=== PATIENT | male | born 1945 | race Caucasian/White ===

== ENCOUNTER → 2016-05-05 | Outpatient (CLI) | payer MEDICARE, BC ==
[2016-05-05 15:37] LABS: CHLORIDE,CL 107 mmol/L (98-110); SODIUM,NA 140 mmol/L (136-146)
== END ==
LOC: MW.CHNEURO 14:56
PROVIDERS: ATTEND Psychiatry & Neurology Neuromuscular Medicine
DX: R56.9 Unspecified convulsions (principal)
CPT/HCPCS: 36415; 80053; 80185; 85025

== ENCOUNTER → 2016-05-20 | Outpatient (CLI) | payer MEDICARE, BC | LOC: MW.CHPOD 08:00 | PROVIDERS: ATTEND Podiatrist Foot & Ankle Surgery | DX: M79.671 Pain in right foot (principal); L84 Corns and callosities; B07.0 Plantar wart | CPT/HCPCS: 17110; 99203 ==

== ENCOUNTER → 2016-06-04 | Outpatient (CLI) | payer MEDICARE, BC | LOC: MW.CHPOD 08:00 | PROVIDERS: ATTEND Podiatrist Foot & Ankle Surgery | DX: L84 Corns and callosities (principal); B07.0 Plantar wart; M79.671 Pain in right foot | CPT/HCPCS: 17110; G0463 ==

== ENCOUNTER → 2016-06-25 | Outpatient (CLI) | payer MEDICARE, BC | LOC: MW.CHPOD 08:00 | PROVIDERS: ATTEND Podiatrist Foot & Ankle Surgery | DX: B07.0 Plantar wart (principal); M79.671 Pain in right foot | CPT/HCPCS: G0463 ==

== ENCOUNTER 2018-06-21 16:09 | Emergency (ER) | payer MEDICARE, BC ==
--- NOTE | 2018-06-21 17:10 | EDM.PDOC ---
ED HPI GENERAL MEDICAL PROBLEM - General Chief Complaint: Lower Extremity Injury/Pain Stated Complaint: LEFT FOOT INJURY Time Seen by Provider: 06/21/18 16:49 Source of Information: Reports: Patient History Limitations: Reports: No Limitations - History of Present Illness INITIAL COMMENTS - FREE TEXT/NARRATIVE: HISTORY AND PHYSICAL: History of present illness: Patient is a 73-year-old male who presents to the emergency room with concern of infection from a puncture site from a nail. Patient states that he had stepped on a nail approximately 3-4 days ago which he removed himself. He states he is not concerned but now has pain and tenderness with palpation at the puncture site. Patient denies any fever, chills, headache, change in vision, syncope or near syncope. Denies any chest pain, back pain, shortness of breath or cough. Denies any abdominal pain, nausea, vomiting, diarrhea, constipation or dysuria. Has not noted any blood in urine or stool. Patient has been eating and drinking appropriately. Review of systems: As per history of present illness and below otherwise all systems reviewed and negative. Past medical history: As per history of present illness and as reviewed below otherwise noncontributory. Surgical history: As per history of present illness and as reviewed below otherwise noncontributory. Social history: See social history for further information Family history: As per history of present illness and as reviewed below otherwise noncontributory. Physical exam: General: Well-developed and well-nourished 73-year-old male. Alert and oriented. Nontoxic appearing and in no acute distress. HEENT: Atraumatic, normocephalic, pupils equal and reactive bilaterally, negative for conjunctival pallor or scleral icterus, mucous membranes moist, trachea midline. No drooling or trismus noted. No meningeal signs. No hot potato voice noted. Lungs: Clear to auscultation, breath sounds equal bilaterally, chest nontender. Heart: S1S2, regular rate and rhythm without overt murmur Abdomen: Soft, nondistended, nontender. Pelvis: Stable nontender. Genitourinary: Deferred. Rectal: Deferred. Skin: Localized area of pinkish erythema noted to the pad of the solar aspect of the left foot below the second and third digit. Otherwise skin is intact, warm, dry. No lesions or rashes noted. Extremities: Moves all extremities per self with difficulty or deficits, negative for cords or calf pain. Neurovascular unremarkable. Neuro: Awake, alert, oriented. Cranial nerves II through XII unremarkable. Cerebellum unremarkable. Motor and sensory unremarkable throughout. Exam nonfocal. Notes: Patient declines crutches or pain medication. We discussed the need for follow- up with podiatry. Supportive care measures were reviewed and discussed. Voices understanding and is agreeable to plan of care. Denies any further questions or concerns at this time. Diagnostics: X-ray Therapeutics: None Prescription: Septra BID x 10 days Impression: Puncture wound Plan: 1. Rest, ice, elevate the extremity as able. 2. Continue to monitor for signs of improvement. 3. Follow-up with your primary care provider or podiatry as we discussed. Return to the ED as needed and as discussed Definitive disposition and diagnosis as appropriate pending reevaluation and review of above. Left Foot Pain Score (Numeric/FACES): 3 - Related Data Allergies Allergy/AdvReac Type Severity Reaction Status Date / Time No Known Allergies Allergy Verified 06/21/18 16:57 Home Meds: Home Meds Sulfamethoxazole/Trimethoprim [Septra DS] 1 each PO BID 10 Days #20 tab [Rx] Past Medical History HEENT History: Reports: Cataract, Other (See Below) Other HEENT History: wears glasses Cardiovascular History: Reports: High Cholesterol Other Cardiovascular History: stopped Atorvastatin 2 months ago Other Respiratory History: denies sleep apnea Musculoskeletal History: Reports: Fracture Other Musculoskeletal History: ribs and right clavicle (states has hardware) Neurological History: Reports: CVA, Seizure Other Neuro History: 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".....last seizure was about 7 months ago Hematologic History: Reports: Other (See Below) Other Hematologic History: stopped Plavix 2 months ago - Infectious Disease History Infectious Disease History: Reports: None - Past Surgical History Head Surgeries/Procedures: Reports: None HEENT Surgical History: Reports: Cataract Surgery GI Surgical History: Reports: Appendectomy, Colonoscopy Male Surgical History: Reports: Prostatectomy Musculoskeletal Surgical History: Reports: Arthroscopic Knee, ORIF, Shoulder Surgery Other Musculoskeletal Surgeries/Procedures:: ORIF right clavicle and ribs Social & Family History - Family History Family Medical History: Noncontributory - Tobacco Use Smoking Status *Q: Never Smoker - Caffeine Use Caffeine Use: Reports: Coffee - Recreational Drug Use Recreational Drug Use: No Review of Systems - Review of Systems Review Of Systems: ROS reveals no pertinent complaints other than HPI. ED EXAM, GENERAL - Physical Exam Exam: See Below (See dictation) Course - Vital Signs Last Recorded V/S: Last Vital Signs Temp 96.3 F 06/21/18 16:57 Pulse 87 06/21/18 16:57 Resp 15 06/21/18 16:57 BP 143/74 H 06/21/18 16:57 Pulse Ox 98 06/21/18 16:57 - Orders/Labs/Meds Orders: Active Orders 24 hr Category Date Time Status Foot 2V Lt [CR] Stat Exams 06/21/18 16:17 Taken Departure - Departure Time of Disposition: 17:10 Disposition: Home, Self-Care 01 Clinical Impression: Puncture wound - Discharge Information Prescriptions: Sulfamethoxazole/Trimethoprim [Septra DS] 1 each PO BID 10 Days #20 tab Referrals: PCP,None [Primary Care Provider] - Forms: ED Department Discharge Additional Instructions: The following information is given to patients seen in the emergency department who are being discharged to home. This information is to outline your options for follow-up care. We provide all patients seen in our emergency department with a follow-up referral. The need for follow-up, as well as the timing and circumstances, are variable depending upon the specifics of your emergency department visit. If you don't have a primary care physician on staff, we will provide you with a referral. We always advise you to contact your personal physician following an emergency department visit to inform them of the circumstance of the visit and for follow-up with them and/or the need for any referrals to a consulting specialist. The emergency department will also refer you to a specialist when appropriate. This referral assures that you have the opportunity for follow-up care with a specialist. All of these measure are taken in an effort to provide you with optimal care, which includes your follow-up. Under all circumstances we always encourage you to contact your private physician who remains a resource for coordinating your care. When calling for follow-up care, please make the office aware that this follow-up is from your recent emergency room visit. If for any reason you are refused follow-up, please contact the [facility] Emergency Department at and asked to speak to the emergency department charge nurse. YONG [facility] [address] [place] [address] [facility] [address] [place] [id number] [place] [facility] [address] [place] [address] 1. Rest, ice, elevate the extremity as able. 2. Continue to monitor for signs of improvement. 3. Follow-up with your primary care provider or podiatry as we discussed. Return to the ED as needed and as discussed - My Orders Last 24 Hours: My Active Orders 06/21/18 16:17 Foot 2V Lt [CR] Stat - Assessment/Plan Last 24 Hours: My Active Orders 06/21/18 16:17 Foot 2V Lt [CR] Stat
--- NOTE | 2018-06-21 17:32 | CR ---
Indication: Stepped on nail 2 weeks ago Technique: Two views of the left foot Comparison: None available Findings/Impression: Bones: No acute fracture or dislocation. An apparently corticated ossific fragment at the base of the 1st distal phalanx could be related to old trauma or an ossicle. No gross erosive or destructive osseous changes seen. No dislocation. Joint spaces: Unremarkable. Soft tissues: Vascular calcifications. A faint curvilinear lucency in the soft tissues between the 1st and 2nd metatarsal heads. Small regional soft tissue gas is not excluded. Correlate with physical exam. Dictated by Peter Alvarado MD @ 06/21/2018 5:30:27 PM Dictated by: Peter Alvarado MD @ 06/21/2018 17:30:34 (Electronically Signed)
[2018-06-21 17:34] VITALS: BP 133/92
== END 2018-06-21 17:30 | disposition home or self-care (01) ==
LOC: MW.ED 16:09
DX: S91.332A Puncture wound without foreign body, left foot, initial encounter (principal); W45.0XXA Nail entering through skin, initial encounter
CPT/HCPCS: 73620-26-LT; 73620-LT; 99283-25

== ENCOUNTER 2019-08-31 19:47 | Emergency (ER) | payer BC, MEDICARE ==
[2019-08-31] MEDS ORDERED: fentaNYL 50 MCG/ML SDV IVPUSH ONE ×2 (19:55→20:57)
[2019-08-31] MEDS ORDERED: fentaNYL 100 MCG/2 ML SDV ONE (19:56)
[2019-08-31] MEDS ORDERED: Sodium Chloride 0.9% 10 ML Syringe FLUSH PRN ×2 (20:01→21:11)
[2019-08-31] MEDS ORDERED: Sodium Chloride 0.9% 2.5 ML Syringe FLUSH PRN ×2 (20:01→21:11)
--- NOTE | 2019-08-31 20:05 | EDM.PDOC ---
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 The patient was performing some tiling on his roof when he fell off of the ladder that was about 15 feet off the ground. He believes that he did lose consciousness but this was not witnessed. He was able to call out for help. When paramedics arrived, the patient was awake and alert. He is complaining of pain to the right anterior chest, the right side of the thoracic back, and the left wrist. He denies any preceding chest discomfort, palpitations, or shortness of breath prior to the fall. right wrist/hip Pain Score (Numeric/FACES): 4 - Related Data Allergies Allergy/AdvReac Type Severity Reaction Status Date / Time No Known Allergies Allergy Verified 08/31/19 20:59 Home Meds: Home Meds Clopidogrel [Plavix] 75 mg PO DAILY 08/31/19 [History] carBAMazepine [TEGretol XR] 100 mg PO DAILY 08/31/19 [History] Past Medical History HEENT History: Reports: Cataract, Other (See Below) Other HEENT History: wears glasses Cardiovascular History: Reports: High Cholesterol Other Cardiovascular History: stopped Atorvastatin 2 months ago Other Respiratory History: denies sleep apnea Musculoskeletal History: Reports: Fracture Other Musculoskeletal History: ribs and right clavicle (states has hardware) Neurological History: Reports: CVA, Seizure Other Neuro History: Clopidogrel therapy, 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".....last seizure was about 7 months ago Hematologic History: Reports: Other (See Below) Other Hematologic History: stopped Plavix 2 months ago - Infectious Disease History Infectious Disease History: Reports: None - Past Surgical History Head Surgeries/Procedures: Reports: None HEENT Surgical History: Reports: Cataract Surgery GI Surgical History: Reports: Appendectomy, Colonoscopy Male Surgical History: Reports: Prostatectomy Musculoskeletal Surgical History: Reports: Arthroscopic Knee, ORIF, Shoulder Surgery Other Musculoskeletal Surgeries/Procedures:: ORIF right clavicle and ribs Social & Family History - Family History Family Medical History: Noncontributory - Caffeine Use Caffeine Use: Reports: Coffee Review of Systems - Review of Systems Review Of Systems: See Below Constitutional: Denies: Chills Eyes: Denies: Vision Change Ears: Denies: Bloody Discharge Nose: Denies: Epistaxis Mouth/Throat: Denies: Bleeding, Clots Respiratory: Denies: Shortness of Breath, Cough, Hemoptysis Cardiovascular: Reports: Chest Pain (Right-sided anterior chest pain) GI/Abdominal: Denies: Abdominal Pain, Nausea, Vomiting Genitourinary: Reports: No Symptoms Musculoskeletal: Reports: Arm Pain (Left wrist pain), Back Pain (Right-sided thoracic back pain). Denies: Neck Pain, Shoulder Pain, Hand Pain, Leg Pain, Foot Pain, Joint Pain, Joint Swelling, Muscle Pain Skin: Denies: Wound Neurological: Denies: Confusion, Dizziness, Headache, Numbness, Paresthesia, Trouble Speaking ED EXAM, GENERAL - Physical Exam Exam: See Below Free Text/Narrative:: Vital signs reviewed. Nursing notes reviewed. Constitutional: Awake, alert, non-distressed. Head: Superficial abrasion to the right side of the forehead. Stable midface. Eyes: EOMI, conjunctiva normal, no discharge, no scleral icterus. No raccoons eyes Ears, Nose, Throat: External ears and nose normal, moist oral mucosa. TMs clear bilaterally, no hemotympanum, no barker sign Cardiovascular: 2+ radial pulses bilaterally, capillary refill less than 2 seconds. Chest: Moderate tenderness palpation of the right anterior chest, no crepitus or flail chest Pulmonary: normal work of breathing, no accessory muscle use. CTA BL. Symmetric chest rise. Abdomen/GI: Soft, nontender, nondistended, no guarding or rigidity, no masses. Stable pelvis. Musculoskeletal: No deformities. Mild tenderness to palpation of the left wrist joint with normal range of motion no deformity or wounds. Mild tenderness to palpation of the right side of the thoracic back. Integumentary: Appropriate color for ethnicity, warm, dry, no pallor or jaundice, no rash. Neurologic: Alert, answering questions appropriately, normal speech, no facial droop, moving all extremities well. Sensation intact light touch in all extremities. Psychiatric: Appropriate mood and affect, normal thought process. EKG INTERPRETATION EKG Interpretation Comments: 12-Lead ECG Interpretation Acquired: 9:46 PM Rhythm: Sinus bradycardia Rate: 59 bpm [place]: Normal Intervals: Normal Ectopy: None Ischemic Changes: None apparent RV Strain: No obvious RV strain pattern. ST Segments/T-Waves: T wave inversions in aVL, not seen in other leads Course - Vital Signs Text/Narrative:: Patient hypertensive but hemodynamically stable, afebrile, well-appearing, looks nontoxic. Differential diagnosis includes but is not limited to: intracranial injury/hemorrhage, skull fracture, facial fractures, spine fractures, chest injury, aortic injury, pneumothorax, hemothorax, intraabdominal hemorrhage, bowel injury, solid organ injury, extremity fractures, pelvis fracture, abrasions, soft tissue injuries, and many others. Immediately roomed upon arrival. Report taken from EMS providers. Monitoring equipment and vital signs equipment attached. IV access was established. E- FAST ultrasound study negative. Given 100 mcg of IV fentanyl for analgesia. 1 view x-rays of the chest and pelvis show old appearing left-sided rib fracture and multiple right-sided rib fixation procedures, possible right iliac wing fracture. Taken to the CT imaging suite for saeed scan series. Pertinent laboratory abnormalities include a lactate of 3.7 (improved to 2.5 after 1 L of LR), creatinine of 1.6, and a random glucose of 307 mg/dL concer cherri for new onset diabetes. Negative troponin, normal hepatic markers. Normal INR and APTT. Normal electrolytes. CBC shows a very slight normocytic anemia. Imaging studies showed acute fractures of right ribs 2 through 5 with a slight pleural hematoma and a small amount of loculated pleural air which was not amenable to tube thoracostomy placement. Also noted a displaced fracture through the right iliac wing with an adjacent hematoma. Other imaging studies showed no acute injuries or findings, but radiologist read of the CT cervical spine study was pending at time of transport so cervical collar was retained in place. Twelve-lead EKG shows no acute ischemia or ectopy. Pain significantly improved after IV fentanyl. Our general surgeon Dr. Enciso was present and evaluated the patient as well. I did speak with the on-call orthopedic surgeon Dr. Junito Cormier who did not feel comfortable admitting this patient due to the fracture pattern to the right iliac wing and recommends that the patient be transferred to a higher level of care. I did speak with Dr. Dawson in the emergency department at [facility] in my not who agrees to accept the transfer. Patient was transferred to the ground EMS crew in good condition. Last Recorded V/S: Last Vital Signs Temp 36.9 C 08/31/19 21:45 Pulse 69 08/31/19 22:10 Resp 18 08/31/19 22:10 BP 169/83 H 08/31/19 22:10 Pulse Ox 98 08/31/19 22:10 - Orders/Labs/Meds Orders: Active Orders 24 hr Category Date Time Status Blood Glucose Check, Bedside [RC] QIDACANDBED Care 08/31/19 21:11 Active Cardiac Monitoring [RC] . DIRECTED Care 08/31/19 20:01 Active Diabetes Education [RC] Click to Edit Care 08/31/19 21:14 Active EKG 12 Lead [EKG Documentation Completion] [RC] STAT Care 08/31/19 21:41 Active Insert Solorzano Catheter [Insert Urinary Catheter] [OM.PC] Care 08/31/19 22:00 Ordered Q24H Pulse Oximetry [RC] ASDIRECTED Care 08/31/19 20:01 Active Urinary Catheter Assessment [RC] ASDIRECTED Care 08/31/19 21:57 Active Insulin Aspart [NovoLOG] Med 09/01/19 07:30 Active See Protocol SUBCUT ACBREAKFASTANDBED Sodium Chloride 0.9% [Normal Saline] Med 08/31/19 21:11 Active 10 ml IV ASDIRECTED PRN Sodium Chloride 0.9% [Saline Flush] Med 08/31/19 20:01 Active 10 ml FLUSH ASDIRECTED PRN Sodium Chloride 0.9% [Saline Flush] Med 08/31/19 21:11 Active 10 ml FLUSH ASDIRECTED PRN Sodium Chloride 0.9% [Saline Flush] Med 08/31/19 20:01 Active 2.5 ml FLUSH ASDIRECTED PRN Sodium Chloride 0.9% [Saline Flush] Med 08/31/19 21:11 Active 2.5 ml FLUSH ASDIRECTED PRN Glucose Management Sub Q Reflex [OM.PC] Routine Oth 08/31/19 21:13 Ordered Peripheral IV Insertion Adult [OM.PC] Urgent Oth 08/31/19 21:11 Ordered Saline Lock Insert [OM.PC] Stat Oth 08/31/19 20:01 Ordered Medication Orders Insulin Aspart (Novolog) 0 unit SUBCUT ACBREAKFASTANDBED ANKITA; Protocol Sodium Chloride (Saline Flush) 10 ml FLUSH ASDIRECTED PRN PRN Reason: Keep Vein Open Sodium Chloride (Saline Flush) 2.5 ml FLUSH ASDIRECTED PRN PRN Reason: Keep Vein Open Sodium Chloride (Saline Flush) 10 ml FLUSH ASDIRECTED PRN PRN Reason: Keep Vein Open Sodium Chloride (Saline Flush) 2.5 ml FLUSH ASDIRECTED PRN PRN Reason: Keep Vein Open Sodium Chloride (Normal Saline) 10 ml IV ASDIRECTED PRN PRN Reason: IV Use Labs: Laboratory Tests 08/31/19 08/31/19 08/31/19 Range/Units 19:50 19:50 19:50 WBC 6.30 (4.0-11.0) K/uL RBC 4.25 L (4.50-5.90) M/uL Hgb 12.6 L (13.0-17.0) g/dL Hct 38.3 (38.0-50.0) % MCV 90.1 (80.0-98.0) fL MCH 29.6 (27.0-32.0) pg MCHC 32.9 (31.0-37.0) g/dL RDW Std Deviation 45.3 (28.0-62.0) fl RDW Coeff of Frank 14 (11.0-15.0) % Plt Count 215 (150-400) K/uL MPV 9.50 (7.40-12.00) fL Neut % (Auto) 63.7 (48.0-80.0) % Lymph % (Auto) 27.8 (16.0-40.0) % [place] % (Auto) 7.5 (0.0-15.0) % Eos % (Auto) 0.8 (0.0-7.0) % Baso % (Auto) 0.2 (0.0-1.5) % Neut # (Auto) 4.0 (1.4-5.7) K/uL Lymph # (Auto) 1.8 (0.6-2.4) K/uL [place] # (Auto) 0.5 (0.0-0.8) K/uL Eos # (Auto) 0.1 (0.0-0.7) K/uL Baso # (Auto) 0.0 (0.0-0.1) K/uL Nucleated RBC % 0.0 /100WBC Nucleated RBCs # 0 K/uL INR 0.97 APTT 20.2 (18.6-31.3) SEC Lactate 3.7 H* (0.20-2.00) mmol/L Sodium (136-148) mmol/L Potassium (3.5-5.1) mmol/L Chloride (98-107) mmol/L Carbon Dioxide (21.0-32.0) mmol/L BUN (7.0-18.0) mg/dL Creatinine (0.8-1.3) mg/dL Est Cr Clr Drug Dosing Estimated GFR (MDRD) ml/min Glucose (74-106) mg/dL Hemoglobin A1c (4.5-6.2) % Calcium (8.5-10.1) mg/dL Total Bilirubin (0.2-1.0) mg/dL AST (15-37) IU/L ALT (14-63) IU/L Alkaline Phosphatase (46-116) U/L Troponin I (0.000-0.056) ng/mL Total Protein (6.4-8.2) g/dL Albumin (3.4-5.0) g/dL Globulin (2.6-4.0) g/dL Albumin/Globulin Ratio (0.9-1.6) SARS-CoV-2 RNA (RT-PCR) (NEGATIVE) Blood Type Antibody Screen 08/31/19 08/31/19 08/31/19 Range/Units 19:50 19:50 19:50 WBC (4.0-11.0) K/uL RBC (4.50-5.90) M/uL Hgb (13.0-17.0) g/dL Hct (38.0-50.0) % MCV (80.0-98.0) fL MCH (27.0-32.0) pg MCHC (31.0-37.0) g/dL RDW Std Deviation (28.0-62.0) fl RDW Coeff of Frank (11.0-15.0) % Plt Count (150-400) K/uL MPV (7.40-12.00) fL Neut % (Auto) (48.0-80.0) % Lymph % (Auto) (16.0-40.0) % [place] % (Auto) (0.0-15.0) % Eos % (Auto) (0.0-7.0) % Baso % (Auto) (0.0-1.5) % Neut # (Auto) (1.4-5.7) K/uL Lymph # (Auto) (0.6-2.4) K/uL [place] # (Auto) (0.0-0.8) K/uL Eos # (Auto) (0.0-0.7) K/uL Baso # (Auto) (0.0-0.1) K/uL Nucleated RBC % /100WBC Nucleated RBCs # K/uL INR APTT (18.6-31.3) SEC Lactate (0.20-2.00) mmol/L Sodium 139 (136-148) mmol/L Potassium 4.5 (3.5-5.1) mmol/L Chloride 101 (98-107) mmol/L Carbon Dioxide 23.4 (21.0-32.0) mmol/L BUN 30 H (7.0-18.0) mg/dL Creatinine 1.6 H (0.8-1.3) mg/dL Est Cr Clr Drug Dosing TNP Estimated GFR (MDRD) 42.3 ml/min Glucose 307 H (74-106) mg/dL Hemoglobin A1c 6.0 (4.5-6.2) % Calcium 9.4 (8.5-10.1) mg/dL Total Bilirubin 0.3 (0.2-1.0) mg/dL AST 26 (15-37) IU/L ALT 34 (14-63) IU/L Alkaline Phosphatase 76 (46-116) U/L Troponin I < 0.050 (0.000-0.056) ng/mL Total Protein 7.1 (6.4-8.2) g/dL Albumin 3.5 (3.4-5.0) g/dL Globulin 3.6 (2.6-4.0) g/dL Albumin/Globulin Ratio 1.0 (0.9-1.6) SARS-CoV-2 RNA (RT-PCR) (NEGATIVE) Blood Type AB POSITIVE Antibody Screen NEGATIVE 08/31/19 08/31/19 Range/Units 21:00 21:46 WBC (4.0-11.0) K/uL RBC (4.50-5.90) M/uL Hgb (13.0-17.0) g/dL Hct (38.0-50.0) % MCV (80.0-98.0) fL MCH (27.0-32.0) pg MCHC (31.0-37.0) g/dL RDW Std Deviation (28.0-62.0) fl RDW Coeff of Frank (11.0-15.0) % Plt Count (150-400) K/uL MPV (7.40-12.00) fL Neut % (Auto) (48.0-80.0) % Lymph % (Auto) (16.0-40.0) % [place] % (Auto) (0.0-15.0) % Eos % (Auto) (0.0-7.0) % Baso % (Auto) (0.0-1.5) % Neut # (Auto) (1.4-5.7) K/uL Lymph # (Auto) (0.6-2.4) K/uL [place] # (Auto) (0.0-0.8) K/uL Eos # (Auto) (0.0-0.7) K/uL Baso # (Auto) (0.0-0.1) K/uL Nucleated RBC % /100WBC Nucleated RBCs # K/uL INR APTT (18.6-31.3) SEC Lactate 2.5 H* (0.20-2.00) mmol/L Sodium (136-148) mmol/L Potassium (3.5-5.1) mmol/L Chloride (98-107) mmol/L Carbon Dioxide (21.0-32.0) mmol/L BUN (7.0-18.0) mg/dL Creatinine (0.8-1.3) mg/dL Est Cr Clr Drug Dosing Estimated GFR (MDRD) ml/min Glucose (74-106) mg/dL Hemoglobin A1c (4.5-6.2) % Calcium (8.5-10.1) mg/dL Total Bilirubin (0.2-1.0) mg/dL AST (15-37) IU/L ALT (14-63) IU/L Alkaline Phosphatase (46-116) U/L Troponin I (0.000-0.056) ng/mL Total Protein (6.4-8.2) g/dL Albumin (3.4-5.0) g/dL Globulin (2.6-4.0) g/dL Albumin/Globulin Ratio (0.9-1.6) SARS-CoV-2 RNA (RT-PCR) NEGATIVE (NEGATIVE) Blood Type Antibody Screen Meds: Medications Generic Name Dose Route Start Last Admin Trade Name Luis Alfredo PRN Reason Stop Dose Admin Insulin Aspart 0 unit 09/01/19 07:30 Novolog SUBCUT ACBREAKFASTANDBED ANKITA Protocol Sodium Chloride 10 ml 08/31/19 20:01 Saline Flush FLUSH ASDIRECTED PRN Keep Vein Open Sodium Chloride 2.5 ml 08/31/19 20:01 Saline Flush FLUSH ASDIRECTED PRN Keep Vein Open Sodium Chloride 10 ml 08/31/19 21:11 Saline Flush FLUSH ASDIRECTED PRN Keep Vein Open Sodium Chloride 2.5 ml 08/31/19 21:11 Saline Flush FLUSH ASDIRECTED PRN Keep Vein Open Sodium Chloride 10 ml 08/31/19 21:11 Normal Saline IV ASDIRECTED PRN IV Use Discontinued Medications Generic Name Dose Route Start Last Admin Trade Name Luis Alfredo PRN Reason Stop Dose Admin Dextrose/Water 50 ml 08/31/19 21:11 Dextrose 50% In Water IVPUSH 08/31/19 21:12 ONETIME ONE Diphenhydramine HCl 25 mg 08/31/19 21:11 Benadryl IVPUSH Q4H PRN Itching Fentanyl 100 mcg 08/31/19 19:55 Fentanyl IVPUSH 08/31/19 19:56 ONETIME ONE Fentanyl Confirm 08/31/19 19:56 08/31/19 20:58 Sublimaze Administered 08/31/19 19:57 Not Given Dose 100 mcg .ROUTE .STK-MED ONE Fentanyl 100 mcg 08/31/19 20:57 08/31/19 20:59 Fentanyl IVPUSH 08/31/19 20:58 100 mcg ONETIME ONE Administration Hydromorphone HCl 0.5 mg 08/31/19 21:11 Dilaudid IVPUSH Q1H PRN Pain (severe 7-10) Lactated Ringer's 1,000 mls @ 999 mls/hr 08/31/19 20:12 08/31/19 20:56 Ringers, Lactated IV 08/31/19 21:12 999 mls/hr .BOLUS ONE Administration Sodium Chloride 1,000 mls @ 125 mls/hr 08/31/19 21:15 Normal Saline IV ASDIRECTED ANKITA Ondansetron HCl 4 mg 08/31/19 21:11 Zofran IVPUSH Q6H PRN Nausea/Vomiting Oxycodone/Acetaminophen 1 tab 08/31/19 21:11 Percocet 325-5 Mg PO Q4H PRN Pain (moderate 4-6) Departure - Departure Time of Disposition: 21:32 Disposition: DC/Tfer to Acute Hospital 02 Preliminary Cause of *Q: Other_Special Instruction Clinical Impression: On chronic clopidogrel therapy Accidental fall Qualifiers: Encounter type: initial encounter Qualified Code(s): W19.XXXA - Unspecified fall, initial encounter Fracture of right iliac wing Qualifiers: Encounter type: initial encounter Fracture type: closed Qualified Code(s): S32.301A - Unspecified fracture of right ilium, initial encounter for closed fracture Multiple fractures of ribs Qualifiers: Encounter type: initial encounter Fracture type: closed Laterality: right Qualified Code(s): S22.41XA - Multiple fractures of ribs, right side, initial encounter for closed fracture - Discharge Information Referrals: PCP,None [Primary Care Provider] - Forms: ED Department Discharge Sepsis Event Note (ED) - Focused Exam Vital Signs: Vital Signs Temp Pulse Resp BP Pulse Ox 08/31/19 22:10 69 18 169/83 H 98 08/31/19 21:45 36.9 C 68 18 161/65 H 98 08/31/19 21:00 69 18 167/63 H 98 08/31/19 20:45 36.4 C 77 18 171/78 H 98 08/31/19 19:50 36.6 C 78 19 168/80 H 94 L - My Orders Last 24 Hours: My Active Orders 08/31/19 20:01 Cardiac Monitoring [RC] . DIRECTED Pulse Oximetry [RC] ASDIRECTED Sodium Chloride 0.9% [Saline Flush] 10 ml FLUSH ASDIRECTED PRN Sodium Chloride 0.9% [Saline Flush] 2.5 ml FLUSH ASDIRECTED PRN Saline Lock Insert [OM.PC] Stat 08/31/19 21:41 EKG 12 Lead [EKG Documentation Completion] [RC] STAT 08/31/19 21:57 Urinary Catheter Assessment [RC] ASDIRECTED 08/31/19 22:00 Insert Solorzano Catheter [Insert Urinary Catheter] [OM.PC] Q24H - Assessment/Plan Last 24 Hours: My Active Orders 08/31/19 20:01 Cardiac Monitoring [RC] . DIRECTED Pulse Oximetry [RC] ASDIRECTED Sodium Chloride 0.9% [Saline Flush] 10 ml FLUSH ASDIRECTED PRN Sodium Chloride 0.9% [Saline Flush] 2.5 ml FLUSH ASDIRECTED PRN Saline Lock Insert [OM.PC] Stat 08/31/19 21:41 EKG 12 Lead [EKG Documentation Completion] [RC] STAT 08/31/19 21:57 Urinary Catheter Assessment [RC] ASDIRECTED 08/31/19 22:00 Insert Solorzano Catheter [Insert Urinary Catheter] [OM.PC] Q24H
[2019-08-31] MEDS ORDERED: Lactated Ringers 1,000 ML IV ONE (20:12)
--- NOTE | 2019-08-31 20:18 | CR ---
Pelvis: AP view of the pelvis was obtained. No discrete fracture or other bony abnormality is seen. Vascular calcification is noted. Slight deformity of the right lateral iliac wing is seen most likely old. Impression: 1. Findings as noted above. Nothing acute is definitely appreciated. If patient has sufficient symptoms to warrant further evaluation, CT could then be considered to further evaluate. Diagnostic code #2 This report was dictated in MDT
--- NOTE | 2019-08-31 20:18 | CR ---
Chest: Portable supine view of the chest was obtained. Comparison: Prior chest x-ray of 12/10/17. Multiple orthopedic fixation hardware is seen within the ribs as well as right clavicle. Multiple old healed left-sided rib fractures are noted. Heart size and mediastinum are normal. Lungs are clear with no acute parenchymal change. Impression: 1. Old trauma as noted above. 2. Nothing acute is definitely appreciated. Diagnostic code #2 This report was dictated in MDT
[2019-08-31 20:34] LABS: BLOOD UREA NITROGEN,BUN 30 mg/dL (7.0-18.0); CARBON DIOXIDE,CO2 23.4 mmol/L (21.0-32.0); CHLORIDE,CL 101 mmol/L (98-107); GLUCOSE RANDOM 307 mg/dL (74-106); POTASSIUM,K 4.5 mmol/L (3.5-5.1); SODIUM,NA 139 mmol/L (136-148)
--- NOTE | 2019-08-31 20:53 | CR ---
Left wrist: 3 views left wrist were obtained. Comparison: No previous study. Joint space narrowing is noted off the distal navicular bone. Vascular calcification is seen. No acute fracture, dislocation or other bony abnormality is seen. Impression: 1. Joint space narrowing and vascular calcification. 2. Nothing acute is seen. Diagnostic code #2 This report was dictated in MDT
--- NOTE | 2019-08-31 20:53 | CR ---
Right femur: AP and lateral views of the right femur were obtained. Comparison: No prior femur study. Mild medial joint space narrowing is seen within the right knee. Joint space within the right hip is preserved. No discrete fracture or other bony abnormality is appreciated. Vascular calcification is noted. Impression: 1. Mild medial joint space narrowing. 2. Nothing acute is appreciated on 2 view right femur study. Diagnostic code #2 This report was dictated in MDT
--- NOTE | 2019-08-31 20:53 | CT ---
Head CT Technique: Multiple axial sections through the brain were obtained. Intravenous contrast was not utilized. Comparison: No prior intracranial imaging is available. Findings: Ventricles along with basal cisterns and sulci over the convexities are mildly prominent. Old infarct is noted within the right frontal region. Old infarct is noted within the right occipital lobe and within a portion of the right temporal lobe. No other abnormal parenchymal densities are seen. No evidence of intracranial hemorrhage. No midline shift or mass-effect is seen. Bone window settings were reviewed. No acute findings within the paranasal sinuses are seen. No acute findings within the mastoid sinuses are seen. No acute calvarial finding is seen. Impression: 1. Senescent change as described above. 2. Nothing acute is appreciated on noncontrast head CT exam. Diagnostic code #2 This report was dictated in MDT
[2019-08-31] MEDS ORDERED: diphenhydrAMINE 50 MG/ML SDV IVPUSH PRN (21:11)
[2019-08-31] MEDS ORDERED: Acetaminophen/oxyCODONE 325-5 MG Tab PO PRN (21:11)
[2019-08-31] MEDS ORDERED: 50% Dextrose in Water 50 ML Syringe IVPUSH ONE (21:11)
[2019-08-31] MEDS ORDERED: Sodium Chloride 0.9% 10 ML SDV IV PRN (21:11)
[2019-08-31] MEDS ORDERED: HYDROmorphone 2 MG/ML Syringe IVPUSH PRN (21:11)
[2019-08-31] MEDS ORDERED: Ondansetron 4 MG/2 ML SDV IVPUSH PRN (21:11)
[2019-08-31] MEDS ORDERED: Sodium Chloride 0.9% 1,000 ML IV SCH (21:15)
--- NOTE | 2019-08-31 21:15 | CT ---
CT lumbar spine Technique: Multiple axial sections were obtained through the lumbar spine. Reconstructed coronal and sagittal images were obtained. Comparison: No prior lumbar spine imaging is available. Findings: Vertebral body heights are maintained. Mild scattered posterior disc space narrowing is seen. Scattered anterior osteophytes are noted. Old healed fracture is noted within the left 10th rib. Partially visualized old rib fracture is noted within the left 9th rib. Vertebral bodies and posterior arches are intact. No fracture is appreciated. Diffuse circumferential disc bulge is noted within the L2-3 level through L4-5 levels. Mild central canal stenosis is noted at L4-5. Bilateral neural foraminal stenosis is noted at L4-5. Left-sided neural foraminal stenosis is noted at L5-S1. Bilateral neural foraminal stenosis is noted at L3-4. Bilateral neural foraminal stenosis is noted at L2-3. Mild bilateral neural foraminal stenosis noted at L1-2. No abnormal subluxation is seen. Mild diffuse degenerative apophyseal change is noted. Impression: 1. Degenerative change as described above. 2. No acute fracture or acute subluxation is appreciated. Diagnostic code #2 This report was dictated in MDT
--- NOTE | 2019-08-31 21:15 | CT ---
CT chest Technique: Multiple axial sections through the chest were obtained. Reconstructed coronal and sagittal images were obtained. Findings: Acute fracture is identified within the 2nd rib with no displacement. Acute fracture is noted within the right lateral 3rd rib with mild displacement. Mildly displaced acute fracture is noted within the lateral 4th rib as well as mildly displaced fracture within the right 5th rib. Multiple old healed bilateral rib fractures are seen. Old right clavicle fracture is also noted. No other definite acute rib fracture is appreciated. There is pleural thickening in the area of the right 5th rib fracture with small amount of pleural are also being loculated in this area. Mild chest wall air is also noted within this region. Lungs otherwise are clear. No pleural effusions are noted. Mediastinum and hilar regions are not normal. No pericardial thickening is seen. Coronary artery calcification is noted. Visualized upper abdominal structures shows no discrete abnormality. Impression: 1. Acute fractures within the right 2nd through 5th ribs. Slight pleural hematoma noted at the level of the 5th rib within the right chest which also includes a small amount of loculated pleural air. Air is also noted within the adjacent chest wall. 2. Multiple old left-sided and right-sided rib fractures as well as old right clavicle fracture. 3. Other findings which are nonacute. No other acute abnormality is appreciated. Diagnostic code #3 This report was dictated in MDT
--- NOTE | 2019-08-31 21:15 | CT ---
CT abdomen and pelvis Technique: Multiple axial sections were obtained from above the dome of the diaphragm inferiorly through the pubic symphysis. Intravenous contrast was utilized. No oral contrast has been given. Findings: Small low density finding measuring less than 1 cm seen within the inferior right lobe of the liver which is too small to characterize but most likely represents a small cyst. Gallbladder contains no calcified gallstones. Fullness is noted to the right adrenal gland believed to be incidental. Spleen appears within normal limits. Kidneys show symmetric contrast enhancement. Multiple small cortical cysts noted within both kidneys. Pancreas is within normal limits. Aorta shows atherosclerotic change which continues into the iliac vessels. No retroperitoneal adenopathy or mesenteric abnormalities are seen. Appendix is seen which is normal in size. No pelvic mass or adenopathy is seen. Small fat-containing inguinal hernia is noted. No free fluid or inflammatory change is seen. Bone window settings were reviewed. Fracture is seen within the right side of the pelvis which is slightly comminuted with mild displacement. This involves right iliac wing and shows adjacent soft tissue hematoma. No other acute osseous finding is seen. Impression: 1. Slightly comminuted fracture within the right iliac wing with surrounding soft tissue hematoma. 2. No other acute osseous finding is seen. 3. Other findings believed to be incidental. No other acute abnormality is appreciated on CT study of the abdomen and pelvis. Diagnostic code #3 This report was dictated in MDT
--- NOTE | 2019-08-31 21:19 | PCM.CONS ---
H&P History of Present Illness - General Date of Service: 08/31/19 Admit Problem/Dx: Admission Diagnosis/Problem Admission Diagnosis/Problem Fall from high place Source of Information: Patient History Limitations: Reports: No Limitations - History of Present Illness Initial Comments - Free Text/Narative: Patient is a 74 year old male who fell from a ladder tonight. It was ~15 ft fall. He did lose consciousness. He was found calling for help by his neighbor. He was brought in by EMS. GCS was 15 on arrival. Patient was complaining of right chest wall pain as well as right hip and left wrist pain. He denied any other symptoms. His past medical history is significant for CVA in 2010, [place], HTN as well as previous rib fractures on the right side of the chest s/p rib fixatio n, right clavicle fracture with fixation. right wrist/hip Pain Score (Numeric/FACES): 4 - Related Data Allergies/Adverse Reactions: Allergies Allergy/AdvReac Type Severity Reaction Status Date / Time No Known Allergies Allergy Verified 08/31/19 20:59 Home Medications: Home Meds Clopidogrel [Plavix] 75 mg PO DAILY 08/31/19 [History] carBAMazepine [TEGretol XR] 100 mg PO DAILY 08/31/19 [History] 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".....last seizure was about 7 months ago Psychiatric History: Reports: None Endocrine/Metabolic History: Reports: None Insulin Pump Model and Metal Tank Erector: None Hematologic History: Reports: Other (See Below) Other Hematologic History: stopped Plavix 2 months ago Immunologic History: Reports: None Oncologic (Cancer) History: Reports: None Dermatologic History: Reports: None - Infectious Disease History Infectious Disease History: Reports: None - Past Surgical History Head Surgeries/Procedures: Reports: None HEENT Surgical History: Reports: Cataract Surgery GI Surgical History: Reports: Appendectomy, Colonoscopy Male Surgical History: Reports: Prostatectomy Musculoskeletal Surgical History: Reports: Arthroscopic Knee, ORIF, Shoulder Surgery Other Musculoskeletal Surgeries/Procedures:: ORIF right clavicle and ribs Social & Family History - Family History Family Medical History: Noncontributory - Tobacco Use Smoking Status *Q: Never Smoker - Caffeine Use Caffeine Use: Reports: Coffee - Recreational Drug Use Recreational Drug Use: No H&P Review of Systems - Review of Systems: Review Of Systems: See Below General: Reports: No Symptoms HEENT: Reports: No Symptoms Pulmonary: Reports: Pleuritic Chest Pain Cardiovascular: Reports: No Symptoms Gastrointestinal: Reports: No Symptoms Genitourinary: Reports: No Symptoms Musculoskeletal: Reports: Other (Right hip pain ) Skin: Reports: No Symptoms Psychiatric: Reports: No Symptoms Neurological: Reports: No Symptoms Exam - Exam Exam: See Below - Vital Signs Vital Signs: Last Vital Signs Temp 36.6 C 08/31/19 19:50 Pulse 78 08/31/19 19:50 Resp 19 08/31/19 19:50 BP 168/80 H 08/31/19 19:50 Pulse Ox 94 L 08/31/19 19:50 - Exam Quality Assessment: Supplemental Oxygen General: Alert, Oriented, Cooperative HEENT: Conjunctiva Clear, EOMI, Hearing Intact, Mucosa Moist & [place], Nares Patent, Normal Nasal Septum, Posterior Pharynx Clear, Pupils Equal, Pupils Reactive, Other (poor dentition. Small contusions and superficial abrasion to forehead) Neck: Supple, Trachea Midline Lungs: Clear to Auscultation, Normal Respiratory Effort Cardiovascular: Regular Rate, Regular Rhythm GI/Abdominal Exam: Soft, Non-Tender, No Distention, No Mass, Other (bruise over lower right flank) Back Exam: Normal Inspection, Other (tender over mid thoracic spine ) Extremities: Normal Inspection, Non-Tender Skin: Warm, Dry, Intact Neurological: Strength Equal Bilateral Neuro Extensive - Mental Status: Alert, Oriented x3, Normal Mood/Affect, Normal Cognition Neuro Extensive - Motor, Sensory, Reflexes: No: Motor/Sensory Deficits Psychiatric: Alert, Normal Affect, Normal Mood - Patient Data Lab Results Last 24 hrs: Laboratory Results - last 24 hr 08/31/19 08/31/19 08/31/19 Range/Units 19:50 19:50 19:50 WBC 6.30 (4.0-11.0) K/uL RBC 4.25 L (4.50-5.90) M/uL Hgb 12.6 L (13.0-17.0) g/dL Hct 38.3 (38.0-50.0) % MCV 90.1 (80.0-98.0) fL MCH 29.6 (27.0-32.0) pg MCHC 32.9 (31.0-37.0) g/dL RDW Std Deviation 45.3 (28.0-62.0) fl RDW Coeff of Frank 14 (11.0-15.0) % Plt Count 215 (150-400) K/uL MPV 9.50 (7.40-12.00) fL Neut % (Auto) 63.7 (48.0-80.0) % Lymph % (Auto) 27.8 (16.0-40.0) % [place] % (Auto) 7.5 (0.0-15.0) % Eos % (Auto) 0.8 (0.0-7.0) % Baso % (Auto) 0.2 (0.0-1.5) % Neut # (Auto) 4.0 (1.4-5.7) K/uL Lymph # (Auto) 1.8 (0.6-2.4) K/uL [place] # (Auto) 0.5 (0.0-0.8) K/uL Eos # (Auto) 0.1 (0.0-0.7) K/uL Baso # (Auto) 0.0 (0.0-0.1) K/uL Nucleated RBC % 0.0 /100WBC Nucleated RBCs # 0 K/uL INR 0.97 APTT 20.2 (18.6-31.3) SEC Lactate 3.7 H* (0.20-2.00) mmol/L Sodium (136-148) mmol/L Potassium (3.5-5.1) mmol/L Chloride (98-107) mmol/L Carbon Dioxide (21.0-32.0) mmol/L BUN (7.0-18.0) mg/dL Creatinine (0.8-1.3) mg/dL Est Cr Clr Drug Dosing Estimated GFR (MDRD) ml/min Glucose (74-106) mg/dL Hemoglobin A1c (4.5-6.2) % Calcium (8.5-10.1) mg/dL Total Bilirubin (0.2-1.0) mg/dL AST (15-37) IU/L ALT (14-63) IU/L Alkaline Phosphatase (46-116) U/L Troponin I (0.000-0.056) ng/mL Total Protein (6.4-8.2) g/dL Albumin (3.4-5.0) g/dL Globulin (2.6-4.0) g/dL Albumin/Globulin Ratio (0.9-1.6) Blood Type Antibody Screen 08/31/19 08/31/19 08/31/19 Range/Units 19:50 19:50 19:50 WBC (4.0-11.0) K/uL RBC (4.50-5.90) M/uL Hgb (13.0-17.0) g/dL Hct (38.0-50.0) % MCV (80.0-98.0) fL MCH (27.0-32.0) pg MCHC (31.0-37.0) g/dL RDW Std Deviation (28.0-62.0) fl RDW Coeff of Frank (11.0-15.0) % Plt Count (150-400) K/uL MPV (7.40-12.00) fL Neut % (Auto) (48.0-80.0) % Lymph % (Auto) (16.0-40.0) % [place] % (Auto) (0.0-15.0) % Eos % (Auto) (0.0-7.0) % Baso % (Auto) (0.0-1.5) % Neut # (Auto) (1.4-5.7) K/uL Lymph # (Auto) (0.6-2.4) K/uL [place] # (Auto) (0.0-0.8) K/uL Eos # (Auto) (0.0-0.7) K/uL Baso # (Auto) (0.0-0.1) K/uL Nucleated RBC % /100WBC Nucleated RBCs # K/uL INR APTT (18.6-31.3) SEC Lactate (0.20-2.00) mmol/L Sodium 139 (136-148) mmol/L Potassium 4.5 (3.5-5.1) mmol/L Chloride 101 (98-107) mmol/L Carbon Dioxide 23.4 (21.0-32.0) mmol/L BUN 30 H (7.0-18.0) mg/dL Creatinine 1.6 H (0.8-1.3) mg/dL Est Cr Clr Drug Dosing TNP Estimated GFR (MDRD) 42.3 ml/min Glucose 307 H (74-106) mg/dL Hemoglobin A1c 6.0 (4.5-6.2) % Calcium 9.4 (8.5-10.1) mg/dL Total Bilirubin 0.3 (0.2-1.0) mg/dL AST 26 (15-37) IU/L ALT 34 (14-63) IU/L Alkaline Phosphatase 76 (46-116) U/L Troponin I < 0.050 (0.000-0.056) ng/mL Total Protein 7.1 (6.4-8.2) g/dL Albumin 3.5 (3.4-5.0) g/dL Globulin 3.6 (2.6-4.0) g/dL Albumin/Globulin Ratio 1.0 (0.9-1.6) Blood Type AB POSITIVE Antibody Screen NEGATIVE Result Diagrams: 08/31/19 19:50 08/31/19 19:50 Sepsis Event Note - Evaluation Sepsis Screening Result: No Definite Risk - Focused Exam Vital Signs: Vital Signs Temp Pulse Resp BP Pulse Ox 08/31/19 19:50 36.6 C 78 19 168/80 H 94 L Date Exam was Performed: 08/31/19 Time Exam was Performed: 21:28 Consult PN Assessment/Plan Procedures: Procedures ASSAY OF MAGNESIUM (02/08/14) ASSAY OF PHENYTOIN TOTAL (02/01/18) ASSAY OF TROPONIN QUANT (02/24/14) CHEST X-RAY 1 VIEW FRONTAL (08/22/14) CHEST X-RAY 2VW FRONTAL&LATL (03/09/15) COMPLETE CBC W/AUTO DIFF WBC (02/01/18) COMPREHEN METABOLIC PANEL (02/01/18) CT ANGIOGRAPHY CHEST (02/08/14) CT HEAD/BRAIN W/O DYE (02/08/14) CT THORAX W/DYE (03/27/15) EEG AWAKE AND ASLEEP (01/09/15) ELECTROCARDIOGRAM TRACING (02/24/14) EMERGENCY DEPT VISIT (06/21/18) EMERGENCY DEPT VISIT (08/22/14) EMERGENCY DEPT VISIT (03/01/14) EMERGENCY DEPT VISIT (02/24/14) EMERGENCY DEPT VISIT (02/08/14) EXTRACRANIAL BILAT STUDY (02/08/14) GLYCOSYLATED HEMOGLOBIN TEST (11/15/14) HYDRATE IV INFUSION ADD-ON (02/08/14) IMMUNIZATION ADMIN (12/10/17) LIPID PANEL (01/15/17) METABOLIC PANEL TOTAL CA (03/23/15) MRI BRAIN STEM W/O & W/DYE (11/16/14) OFFICE/OUTPATIENT VISIT EST (06/05/15) OFFICE/OUTPATIENT VISIT EST (12/08/14) OFFICE/OUTPATIENT VISIT EST (11/23/14) OFFICE/OUTPATIENT VISIT NEW (12/27/14) OFFICE/OUTPATIENT VISIT NEW (03/13/14) PROTHROMBIN TIME (02/08/14) QUANTITATIVE ASSAY DRUG (01/17/15) ROUTINE VENIPUNCTURE (02/01/18) TDAP VACCINE 7 YRS/> IM (12/10/17) THER/PROPH/DIAG INJ IV PUSH (02/08/14) THER/PROPH/DIAG INJ SC/IM (12/10/17) TTE W/DOPPLER COMPLETE (02/08/14) TX/PRO/DX INJ NEW DRUG ADDON (02/08/14) TX/PRO/DX INJ SAME DRUG TECHNICAL SME (02/08/14) URINALYSIS AUTO W/SCOPE (11/15/14) X-RAY EXAM OF FOOT (06/21/18) X-RAY EXAM OF HAND (10/28/15) X-RAY EXAM OF KNEE 1 OR 2 (08/16/15) X-RAY EXAM OF KNEE 3 (07/26/15) X-RAY EXAM RIBS UNI 2 VIEWS (07/21/15) X-RAY EXAM THORAC SPINE 3VWS (12/10/17) X-RAY EXAM UNILAT RIBS/CHEST (12/10/17) (1) Fracture of iliac wing SNOMED Code(s): 843687344 Code(s): S32.309A - UNSP FRACTURE OF UNSP ILIUM, INIT ENCNTR FOR CLOSED FRACTURE Current Visit: Yes (2) Fracture of multiple ribs SNOMED Code(s): 3362736 Code(s): S22.49XA - MULTIPLE FRACTURES OF RIBS, UNSP SIDE, INIT FOR CLOS FX Current Visit: No Onset Date: 03/01/14 (3) Fall from ladder SNOMED Code(s): 69840903 Code(s): W11.XXXA - FALL ON AND FROM LADDER, INITIAL ENCOUNTER Current Visit: No Qualifiers: Encounter type: initial encounter Qualified Code(s): W11.XXXA - Fall on and from ladder, initial encounter Problem List Initiated/Reviewed/Updated: Yes My Orders Last 24 Hours: My Active Orders 08/31/19 21:11 Patient Status [ADT] Routine Blood Glucose Check, Bedside [RC] QIDACANDBED Cardiac Monitoring [RC] . DIRECTED Oxygen Therapy [RC] PRN RT Incentive Spirometry [RC] Q1HWA Up With Assistance [RC] ASDIRECTED Vital Signs [RC] PER UNIT ROUTINE Acetaminophen/oxyCODONE [Percocet 325-5 MG] 1 tab PO Q4H PRN HYDROmorphone [Dilaudid] 0.5 mg IVPUSH Q1H PRN Ondansetron [Zofran] 4 mg IVPUSH Q6H PRN Sodium Chloride 0.9% [Normal Saline] 10 ml IV ASDIRECTED PRN Sodium Chloride 0.9% [Saline Flush] 10 ml FLUSH ASDIRECTED PRN Sodium Chloride 0.9% [Saline Flush] 2.5 ml FLUSH ASDIRECTED PRN diphenhydrAMINE [Benadryl] 25 mg IVPUSH Q4H PRN Peripheral IV Insertion Adult [OM.PC] Urgent Resuscitation Status Routine 08/31/19 21:12 Intake and Output [RC] Q4HR Pulse Oximetry [RC] CONTINUOUS 08/31/19 21:13 Glucose Management Sub Q Reflex [OM.PC] Routine 08/31/19 21:14 Diabetes Education [RC] Click to Edit 08/31/19 21:15 Sodium Chloride 0.9% @ 125 MLS/HR (1000ml) Sodium Chloride 0.9% [Normal Saline] 1,000 ml IV ASDIRECTED 09/01/19 05:11 CBC W/O DIFF,HEMOGRAM [HEME] AM COMPREHENSIVE METABOLIC PN,CMP [CHEM] AM 09/01/19 07:30 Insulin Aspart [NovoLOG] See Protocol SUBCUT ACBREAKFASTANDBED Plan: Patients lactate is elevated at 3.7 and is receiving fluids. Glucose 301. Cr 1.6 and BUN 30. His hgb is slightly low. He is on plavix. CT shows 2nd-5th right sided rib fractures and right iliac wing fracture that is mildly comminuted and displaced. There is a small foci of air next to his fractures as well as a small hematoma but neither is significant enough to place a chest tube. Will need orthopedic care at a higher care facility. Will be transferred.
--- NOTE | 2019-08-31 21:21 | CT ---
CT thoracic spine Technique: Multiple axial sections through the thoracic spine were obtained. Findings: Scattered anterior osteophytes are seen most prominent within the lower thoracic spine. Vertebral body heights are maintained. Mild scattered degenerative apophyseal change is seen throughout the spine. No acute fracture is seen within the thoracic spine. No abnormal subluxation is seen within the thoracic spine. This study shows a questionable fracture within the posterior right 1st rib. Impression: 1. Questionable fracture within the posterior right 1st rib. 2. Degenerative change within the thoracic spine. 3. No acute abnormality is otherwise seen on CT study of the thoracic spine. Diagnostic code #2 This report was dictated in MDT
[2019-08-31 22:14] VITALS: BP 169/83; PULSE 69
--- NOTE | 2019-08-31 22:35 | CT ---
CT cervical spine Technique: Multiple axial sections through the cervical spine were obtained. Findings: Definite fractures are seen on this exam within the posterior right 1st and 2nd ribs. Mild disc space narrowing is noted at C5-6 and C6-7 with posterior osteophytes at both these levels. Anterior osteophytes are seen most prominent at both these levels. Vertebral body heights are maintained. No fracture is seen. Mild right-sided neural foraminal stenosis is noted at C3-4. Moderate to severe right-sided neural foraminal stenosis noted at C5-6 with moderate left-sided neural foraminal stenosis at C5-6. Mild bilateral neural foraminal stenosis at C6-7. Diffuse posterior disc bulge noted at C5-6 which indents the anterior thecal sac and causes mild central canal stenosis. No acute fracture. No abnormal subluxation is seen. Impression: 1. Degenerative change as described above. 2. Fractures are seen within the posterior right 1st and 2nd ribs 3. No acute cervical spine fracture is appreciated. No abnormal subluxation is seen. Diagnostic code #3 This report was dictated in MDT
[2019-08-31] MEDS ORDERED: Iopamidol 755 MG/ML 500 ML Multipack Bottle IVPUSH STA (22:45)
[2019-09-01] MEDS ORDERED: Insulin Aspart 100 Units/ML 3 ML Pen SUBCUT SCH (07:30)
== END 2019-08-31 22:30 ==
LOC: MW.ED 19:47
DX: S22.41XA Multiple fractures of ribs, right side, initial encounter for closed fracture (principal); S32.301A Unspecified fracture of right ilium, initial encounter for closed fracture; Z20.828 Contact with and (suspected) exposure to other viral communicable diseases; R00.1 Bradycardia, unspecified; Z79.02 Long term (current) use of antithrombotics/antiplatelets; Z79.899 Other long term (current) drug therapy; W11.XXXA Fall on and from ladder, initial encounter
CPT/HCPCS: 36415; 70450; 71045; 71260; 72125; 72128; 72131; 72170; 73110; 73552; 74177; 80053; 83036; 83605; 84484; 85025; 85610; 85730; 86850; 86900; 86901; 93005; 96374; 99285; J3010; J7120; Q9967; U0002

== ENCOUNTER 2020-01-14 17:55 | Emergency (ER) | payer MEDICARE, BC, MEDICAID ==
--- NOTE | 2020-01-14 18:07 | EDM.PDOC ---
ED HPI GENERAL MEDICAL PROBLEM - General Chief Complaint: General Stated Complaint: HIGH BLOOD PRESSURE Time Seen by Provider: 01/14/20 18:07 Source of Information: Reports: Patient History Limitations: Reports: No Limitations - History of Present Illness INITIAL COMMENTS - FREE TEXT/NARRATIVE: HISTORY AND PHYSICAL: History of present illness: Patient is a 74-year-old male who presents to the emergency room with concerns of elevated blood pressure. He states he takes a blood pressure pill when he feels like his blood pressure is high. He typically can tell when his blood pressure is elevated as he will get a headache and "full feeling" in his head. He is concerned as his blood pressure medication is , dating 12/2014. He states he has not refilled or had a new prescription as he previously had not had access to insurance and could not afford any medication. Yesterday the patient had an episode of dizziness, headache and generally feeling unwell -eats his blood pressure was high and he took one of his medications, this resolved. Today he was concerned his blood pressure was elevated again due to his headache, blood pressure was 170/110's. His headache is now resolved but did want to come and get "checked out" and hopefully renew/update his prescription for all XL. He does not describe this as the "worst headache of his life" rather a dull full sensation. This is not atypical for him and has no new symptoms associated with the headache. He denies any light sensitivity or noise sensitivity. Patient denies any fever, chills, change in vision, syncope or near syncope. Denies any chest pain, back pain, shortness of breath or cough. Denies any abdominal pain, nausea, vomiting, diarrhea, constipation or dysuria. Has not noted any blood in urine or stool. Patient has been eating and drinking appropriately. Review of systems: As per history of present illness and below otherwise all systems reviewed and negative. Past medical history: As per history of present illness and as reviewed below otherwise noncontributory. Surgical history: As per history of present illness and as reviewed below otherwise noncontributory. Social history: See social history for further information Family history: As per history of present illness and as reviewed below otherwise noncontributory. Physical exam: General: Well developed and well nourished. Alert and orientated x 3. Nontoxic in appearance and in no acute distress. Vital signs are stable and have been reviewed by me. Nursing notes were reviewed. HEENT: Atraumatic, normocephalic, pupils equal and reactive bilaterally, negative for conjunctival pallor or scleral icterus, mucous membranes moist, TMs normal bilaterally, throat clear, neck supple, nontender, trachea midline. No dr ooling or trismus noted. No meningeal signs. No hot potato voice noted. Lungs: Clear to auscultation, breath sounds equal bilaterally, chest nontender. Normal work of breathing, no accessory muscles used. Heart: S1S2, regular rate and rhythm without overt murmur Abdomen: Soft, nondistended, nontender. Negative for masses or hepatosplenomegaly. Negative for costovertebral tenderness. Skin: Intact, warm, dry. No lesions or rashes noted. Hematologic: No petechiae or purpra. Mucosa appropriate color and normal nail bed color and refill. Extremities: Atraumatic, moves all extremities per self without difficulty or deficits, negative for cords or calf pain. Neurovascular unremarkable. Neuro: Awake, alert, oriented. Cranial nerves II through XII unremarkable. Cerebellum unremarkable. Motor and sensory unremarkable throughout. Exam nonfocal. Psychiatric: Mood and affect are appropriate. Normal thought process. Answering questions appropriately. Notes: Patient's blood pressure has come down during my interview portion. Due to the patient's vague symptoms that have been ongoing for what sounds like quite a while, I will do some basic lab work. Using shared decision making I do not feel along with the patient, he needs a head CT or any further work-up other than what has been ordered. Blood pressure has improved since he initially arrived. Lab work is unremarkable. EKG shows no significant findings. I will refill his Toprol-XL so it is not outdated. I have talked with the patient about today's findings, in addition to providing specific details for plan of care. Reassessment at the time of disposition demonstrates that the patient is in no acute distress. The patient is stable for discharge, counseling was provided and we discussed in great detail signs and symptoms that would prompt them to return to the Emergency Department. Medication, follow up and supportive care measures were reviewed and discussed. Voices understanding and is agreeable to plan of care. Denies any further questions or concerns at this time. Diagnostics: CBC, CMP, Troponin, EKG Therapeutics: None Prescription: Toprol XL Impression: Encounter for medication refill History of hypertension Plan: 1. Today your lab work is normal. 2. Take your blood pressure medication as directed. 3. We encourage you to follow up with your primary care provider in the next few weeks for re-evaluation and further care/management. 4. If your symptoms should worsen, new symptoms develop or any of the signs and symptoms we discussed should arise please return to the emergency room or call 911 (if needed). Definitive disposition and diagnosis as appropriate pending reevaluation and review of above. - Related Data Allergies Allergy/AdvReac Type Severity Reaction Status Date / Time No Known Allergies Allergy Verified 01/14/20 18:07 Home Meds: Home Meds Clopidogrel [Plavix] 75 mg PO DAILY 08/31/19 [History] carBAMazepine [TEGretol XR] 100 mg PO DAILY 08/31/19 [History] Metoprolol Succinate [Toprol XL 50mg] 1 dose PO DAILY 01/14/20 [History] Metoprolol Succinate [Toprol XL 50mg] 50 mg PO DAILY 30 Days #30 tab.er 01/14/20 [Rx] 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".....last seizure was about 7 months ago Psychiatric History: Reports: None Endocrine/Metabolic History: Reports: None Insulin Pump Model and Technical Stenographer: None Hematologic History: Reports: Other (See Below) Other Hematologic History: stopped Plavix 2 months ago Immunologic History: Reports: None Oncologic (Cancer) History: Reports: None Dermatologic History: Reports: None - Infectious Disease History Infectious Disease History: Reports: None - Past Surgical History Head Surgeries/Procedures: Reports: None HEENT Surgical History: Reports: Cataract Surgery GI Surgical History: Reports: Appendectomy, Colonoscopy Male Surgical History: Reports: Prostatectomy Musculoskeletal Surgical History: Reports: Arthroscopic Knee, ORIF, Shoulder Surgery Other Musculoskeletal Surgeries/Procedures:: ORIF right clavicle and ribs Social & Family History - Family History Family Medical History: No Pertinent Family History - Caffeine Use Caffeine Use: Reports: Coffee ED ROS GENERAL - Review of Systems Review Of Systems: Comprehensive ROS is negative, except as noted in HPI. ED EXAM, GENERAL - Physical Exam Exam: See Below (See dictation) Course - Vital Signs Last Recorded V/S: Last Vital Signs Temp 98.1 F 01/14/20 18:09 Pulse 67 01/14/20 19:03 Resp 14 01/14/20 19:03 BP 138/78 01/14/20 19:03 Pulse Ox 97 01/14/20 19:03 - Orders/Labs/Meds Orders: Active Orders 24 hr Category Date Time Status EKG Documentation Completion [RC] STAT Care 01/14/20 18:19 Active Labs: Laboratory Tests 01/14/20 01/14/20 Range/Units 18:35 18:35 WBC 4.84 (4.0-11.0) K/uL RBC 4.47 L (4.50-5.90) M/uL Hgb 13.3 (13.0-17.0) g/dL Hct 40.2 (38.0-50.0) % MCV 89.9 (80.0-98.0) fL MCH 29.8 (27.0-32.0) pg MCHC 33.1 (31.0-37.0) g/dL RDW Std Deviation 45.7 (28.0-62.0) fl RDW Coeff of Frank 14 (11.0-15.0) % Plt Count 179 (150-400) K/uL MPV 9.20 (7.40-12.00) fL Neut % (Auto) 62.8 (48.0-80.0) % Lymph % (Auto) 27.9 (16.0-40.0) % Custer % (Auto) 8.1 (0.0-15.0) % Eos % (Auto) 1.0 (0.0-7.0) % Baso % (Auto) 0.2 (0.0-1.5) % Neut # (Auto) 3.0 (1.4-5.7) K/uL Lymph # (Auto) 1.4 (0.6-2.4) K/uL Custer # (Auto) 0.4 (0.0-0.8) K/uL Eos # (Auto) 0.1 (0.0-0.7) K/uL Baso # (Auto) 0.0 (0.0-0.1) K/uL Nucleated RBC % 0.0 /100WBC Nucleated RBCs # 0 K/uL Sodium 138 (136-148) mmol/L Potassium 3.9 (3.5-5.1) mmol/L Chloride 104 (98-107) mmol/L Carbon Dioxide 24.2 (21.0-32.0) mmol/L BUN 23 H (7.0-18.0) mg/dL Creatinine 1.0 (0.8-1.3) mg/dL Est Cr Clr Drug Dosing 49.29 mL/min Estimated GFR (MDRD) > 60.0 ml/min Glucose 102 (74-106) mg/dL Calcium 8.7 (8.5-10.1) mg/dL Total Bilirubin 0.3 (0.2-1.0) mg/dL AST 19 (15-37) IU/L ALT 28 (14-63) IU/L Alkaline Phosphatase 85 (46-116) U/L Troponin I < 0.050 (0.000-0.056) ng/mL Total Protein 7.4 (6.4-8.2) g/dL Albumin 3.6 (3.4-5.0) g/dL Globulin 3.8 (2.6-4.0) g/dL Albumin/Globulin Ratio 0.9 (0.9-1.6) Departure - Departure Time of Disposition: 19:22 Disposition: Home, Self-Care 01 Clinical Impression: Encounter for medication refill Hypertension Qualifiers: Hypertension type: essential hypertension Qualified Code(s): I10 - Essential (primary) hypertension - Discharge Information Prescriptions: Metoprolol Succinate [Toprol XL 50mg] 50 mg PO DAILY 30 Days #30 tab.er Instructions: Hypertension, Adult, [id number] Referrals: Donna Tam NP [Primary Care Provider] - Forms: ED Department Discharge Additional Instructions: The following information is given to patients seen in the emergency department who are being discharged to home. This information is to outline your options for follow-up care. We provide all patients seen in our emergency department with a follow-up referral. The need for follow-up, as well as the timing and circumstances, are variable depending upon the specifics of your emergency department visit. If you don't have a primary care physician on staff, we will provide you with a referral. We always advise you to contact your personal physician following an emergency department visit to inform them of the circumstance of the visit and for follow-up with them and/or the need for any referrals to a consulting specialist. The emergency department will also refer you to a specialist when appropriate. This referral assures that you have the opportunity for follow-up care with a specialist. All of these measure are taken in an effort to provide you with optimal care, which includes your follow-up. Under all circumstances we always encourage you to contact your private physic melissa who remains a resource for coordinating your care. When calling for follow- up care, please make the office aware that this follow-up is from your recent emergency room visit. If for any reason you are refused follow-up, please contact the [facility] Emergency Department at and asked to speak to the emergency department charge nurse. [facility] [address] [place] [address] [place] [address] Thank you for choosing the [facility] emergency department in [place] for your medical needs today. It was a pleasure caring for you. Today you were seen in the emergency department for high blood pressure. 1. Today your lab work is normal. 2. Take your blood pressure medication as directed. 3. We encourage you to follow up with your primary care provider in the next few weeks for re-evaluation and further care/management. 4. If your symptoms should worsen, new symptoms develop or any of the signs and symptoms we discussed should arise please return to the emergency room or call 911 (if needed). Sepsis Event Note (ED) - Focused Exam Vital Signs: Vital Signs Temp Pulse Resp BP Pulse Ox 01/14/20 19:03 67 14 138/78 97 01/14/20 18:09 98.1 F 65 18 146/114 H 96 - My Orders Last 24 Hours: My Active Orders 01/14/20 18:19 EKG Documentation Completion [RC] STAT - Assessment/Plan Last 24 Hours: My Active Orders 01/14/20 18:19 EKG Documentation Completion [RC] STAT
[2020-01-14 19:17] LABS: BLOOD UREA NITROGEN,BUN 23 mg/dL (7.0-18.0); CARBON DIOXIDE,CO2 24.2 mmol/L (21.0-32.0); CHLORIDE,CL 104 mmol/L (98-107); GLUCOSE RANDOM 102 mg/dL (74-106); POTASSIUM,K 3.9 mmol/L (3.5-5.1); SODIUM,NA 138 mmol/L (136-148)
--- NOTE | 2020-01-14 19:23 | PCM.SN.2 ---
- Free Text/Narrative Note: 2019 at 1909 p.m. read 1915. Sinus rhythm. Heart rate 62. IN 144 axis 57 Q QT 411 the EKG shows increased S waves in V3 and R waves in V4 through 6. There is some slight elevation of the T wave. Compared to 08/31/2019 there is only slight elevation of the T waves which is not an acute injury but rather electrol yte variation. Impression no acute injury
[2020-01-14 19:28] VITALS: BP 141/66; PULSE 61
== END 2020-01-14 19:29 | disposition home or self-care (01) ==
LOC: MW.ED 17:55
DX: I10 Essential (primary) hypertension (principal); Z76.0 Encounter for issue of repeat prescription; Z86.73 Personal history of transient ischemic attack (TIA), and cerebral infarction without residual deficits; Z79.02 Long term (current) use of antithrombotics/antiplatelets
CPT/HCPCS: 36415; 80053; 84484; 85025; 93005; 93010; 99283; 99283-25

== ENCOUNTER 2020-01-16 16:41 | Emergency (ER) | payer MEDICARE, BC, MEDICAID ==
[2020-01-16] MEDS ORDERED: Sodium Chloride 0.9% 10 ML Syringe FLUSH PRN (17:01)
[2020-01-16] MEDS ORDERED: Sodium Chloride 0.9% 2.5 ML Syringe FLUSH PRN (17:01)
--- NOTE | 2020-01-16 17:01 | EDM.PDOC ---
<Raymundo Ruvalcaba - Last Filed: 01/16/20 19:25> ED HPI GENERAL MEDICAL PROBLEM - General Chief Complaint: Neuro Symptoms/Deficits Stated Complaint: PRESSURE IN HEAD, DIZZY Time Seen by Provider: 01/16/20 16:46 - Related Data Allergies Allergy/AdvReac Type Severity Reaction Status Date / Time No Known Allergies Allergy Verified 01/16/20 16:55 Home Meds: Home Meds Clopidogrel [Plavix] 75 mg PO DAILY 08/31/19 [History] carBAMazepine [TEGretol XR] 100 mg PO DAILY 08/31/19 [History] Metoprolol Succinate [Toprol XL 50mg] 1 dose PO DAILY 01/14/20 [History] Metoprolol Succinate [Toprol XL 50mg] 50 mg PO DAILY 30 Days #30 tab.er 01/14/20 [Rx] Course - Vital Signs Text/Narrative:: CT and CT angio failed to show any acute emergent vascular occlusion. Patient was in good spirits and wanted to go home. He is already on clopidogrel and a baby aspirin. I will ask him to call his doctor tomorrow and to sit and stand slowly and carefully in the meantime. Departure - Departure Time of Disposition: 19:26 Disposition: Home, Self-Care 01 Condition: Good Clinical Impression: Lightheadedness - Discharge Information Instructions: Dizziness, [id number] Referrals: Jacey Pittman MD [Primary Care Provider] - Forms: ED Department Discharge Additional Instructions: Be careful if you are dizzy. Sit and stand slowly. In the immediate future continue your clopidogrel and your baby aspirin. Call your doctor tomorrow to see if your doctor wants any other changes. [facility] - Neurology Professional [address], [address] [place] [address] The following information is given to patients seen in the emergency department who are being discharged to home. This information is to outline your options for follow-up care. We provide all patients seen in our emergency department with a follow-up referral. The need for follow-up, as well as the timing and circumstances, are variable depending upon the specifics of your emergency department visit. If you don't have a primary care physician on staff, we will provide you with a referral. We always advise you to contact your personal physician following an emergency department visit to inform them of the circumstance of the visit and for follow-up with them and/or the need for any referrals to a consulting specialist. The emergency department will also refer you to a specialist when appropriate. This referral assures that you have the opportunity for follow-up care with a specialist. All of these measure are taken in an effort to provide you with optimal care, which includes your follow-up. Under all circumstances we always encourage you to contact your private physician who remains a resource for coordinating your care. When calling for follow-up care, please make the office aware that this follow-up is from your recent emergency room visit. If for any reason you are refused follow-up, please contact the [facility] Emergency Department at and asked to speak to the emergency department charge nurse. <Kiran Corrales - Last Filed: 01/17/20 07:15> ED HPI GENERAL MEDICAL PROBLEM - General Source of Information: Reports: Patient, Old Records History Limitations: Reports: No Limitations - History of Present Illness INITIAL COMMENTS - FREE TEXT/NARRATIVE: This is a very pleasant 74-year-old man with a past medical history of acute coronary syndrome, recent hospitalization for fall with multiple rib fractures and iliac wing fracture, clopidogrel therapy, hypertension, seizure disorder presenting with lightheadedness and headache. Patient was seen in the emergency department 2 days ago on January 13 for concerns of elevated blood pressure. According to the ED visit notes, he did complain of some lightheadedness and head pressure. He did describe a pressure of fullness in the head which is similar to what he is describing today. He did have some lab work performed an EKG which were reassuring. The nurse practitioner refilled his Toprol-XL however the patient and the [employer] D[employer] did not pursue a head CT utilizing shared decision making during this visit. This afternoon, the patient presents back to the emergency department with similar complaints. He describes intermittent lightheadedness but he cannot quite tell me how long this has been going on. It has been going on for at least several days and has been happening since before his ER visit on January 13. He also complains of continued head pressure which was also present during this most recent emergency department visit. He cannot quite tell me if any of the symptoms are worse today compared to most recent days prior. He does tell me that he fell about a month ago while he was working on his house. He states that he was on a bucket about 2 feet off the ground when he fell backwards and struck his head on the ground. He did not lose consciousness or seek medical attention. Since then, he has had intermittent lightheadedness and occasional "pressure" sensation of the head. No report of any new head trauma since then. He does not really complain of any pain in the head, just a sensation of "pressure". Denies any visual disturbance, neck pain, chest pain, shortness of breath, extremity numbness or weakness. He does report some intermittent difficulty ambulating due to feeling lightheaded. ROS: A 10-point review of systems was negative, except as noted in the HPI (or in the ROS section of this note). Past medical history: Reviewed, no additional pertinent history. Surgical history: Reviewed in system, no additional pertinent history. Social history: Reviewed in system, no additional pertinent history. Family history: Reviewed in system, no additional pertinent history. PHYSICAL EXAM Vital signs reviewed. Nursing notes reviewed. Constitutional: Awake, alert, non-distressed. Head: Normocephalic, atraumatic. Neck: Supple, nontender. Eyes: EOMI, conjunctiva normal, no discharge, no scleral icterus. Ears, Nose, Throat: External ears and nose normal, moist oral mucosa. Cardiovascular: 2+ radial pulses bilaterally, capillary refill less than 2 seconds. Pulmonary: normal work of breathing, no accessory muscle use. Abdomen/GI: Soft, nontender, nondistended, no guarding or rigidity, no masses. Musculoskeletal: No deformities. Integumentary: Appropriate color for ethnicity, warm, dry, no pallor or jaundice, no rash. Neurologic: Awake, alert, and oriented x3. Cranial nerves II through XII intact. No facial droop or dysarthria. No temporal artery tenderness. Supple neck with normal range of motion. No pronator drift. Normal qqklit-vlcy-fmvgus and wkwc-sv-gpfe. No dysdiadochokinesia. 5/5 strength in all extremities. Sensation intact to light touch x4. Normal gait. Able to sit, stand, and ambulate without assistance. Psychiatric: Appropriate mood and affect, normal thought process. This patient was seen and evaluated during the 2019 SARS-CoV-2 novel coronavirus pandemic period. Community viral transmission is ongoing at time of this encounter and the emergency department is operating under pandemic response procedures. 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".....last seizure was about 7 months ago Psychiatric History: Reports: None Endocrine/Metabolic History: Reports: None Insulin Pump Model and Class A Regional Drivers: None Hematologic History: Reports: Other (See Below) Other Hematologic History: stopped Plavix 2 months ago Immunologic History: Reports: None Oncologic (Cancer) History: Reports: None Dermatologic History: Reports: None - Infectious Disease History Infectious Disease History: Reports: None - Past Surgical History Head Surgeries/Procedures: Reports: None HEENT Surgical History: Reports: Cataract Surgery GI Surgical History: Reports: Appendectomy, Colonoscopy Male Surgical History: Reports: Prostatectomy Other Male Surgeries/Procedures: prostate surgery Musculoskeletal Surgical History: Reports: Arthroscopic Knee, ORIF, Shoulder Surgery Other Musculoskeletal Surgeries/Procedures:: ORIF right clavicle and ribs Social & Family History - Family History Family Medical History: No Pertinent Family History - Tobacco Use Tobacco Use Status *Q: Never Tobacco User - Caffeine Use Caffeine Use: Reports: Coffee - Recreational Drug Use Recreational Drug Use: No ED ROS GENERAL - Review of Systems Review Of Systems: See Below ED EXAM, NEURO - Physical Exam Exam: See Below #1 Interpretation EKG Interpretation Comments: 12-Lead ECG Interpretation Acquired: 4:49 PM Rhythm: Sinus bradycardia Rate: 56 bpm [place]: Normal Intervals: Normal Ectopy: None RV Strain: No obvious RV strain pattern. ST Segments/T-Waves: No notable changes Acute Ischemic Changes: None apparent Interpretation: No STEMI Course - Vital Signs Text/Narrative:: 74-year-old male with complaints of subacute lightheadedness which is intermittent along with subacute head pressure. Patient hemodynamically stable, afebrile, well-appearing, looks nontoxic. Differential diagnosis includes but is not limited to: Intracranial hemorrhage, WORSHIP LEADER mass or malignancy, electrolyte disturbance, anemia, arrhythmia, and many others. 1715: Patient is neurologically intact. I have a low suspicion for CVA at this point given the chronicity of the symptoms and his neurological examination being nonfocal. He was here in the ER 2 days ago and describes similar symptoms at that point, they do not seem to be any worse today. He did not undergo a head CT during that visit so I think I am going to obtain a noncontrast head CT today. His twelve-lead EKG shows sinus bradycardia but it looks nonischemic. We are going to obtain some labs as well. At this point his symptoms are subacute. If he had a stroke I would expect to see an area of hypodensity on CT scan. We are also going to obtain angiographic imaging of the head and neck to evaluate for any carotid stenosis or any other vascular occlusion. Labs are reassuring. Normal cell lines. Normal electrolytes and renal function, negative troponin. CT imaging by my review has no obvious hypodensity or intracranial hemorrhage. No obvious abnormalities on the angiographic studies. Radiology reads are pending at shift change. Signed out to my colleague Dr. Ruvalcaba. Please refer to his note for the disposition. Last Recorded V/S: Last Vital Signs Temp 36.8 C 01/16/20 19:46 Pulse 79 01/16/20 19:46 Resp 16 01/16/20 19:46 BP 142/68 H 01/16/20 19:46 Pulse Ox 100 01/16/20 19:46 - Orders/Labs/Meds Orders: Active Orders 24 hr Category Date Time Status Saline Lock Insert [OM.PC] Stat Oth 01/16/20 17:01 Ordered Labs: Laboratory Tests 01/16/20 01/16/20 Range/Units 16:50 16:50 WBC 5.50 (4.0-11.0) K/uL RBC 5.07 (4.50-5.90) M/uL Hgb 15.2 (13.0-17.0) g/dL Hct 45.2 (38.0-50.0) % MCV 89.2 (80.0-98.0) fL MCH 30.0 (27.0-32.0) pg MCHC 33.6 (31.0-37.0) g/dL RDW Std Deviation 45.8 (28.0-62.0) fl RDW Coeff of Frank 14 (11.0-15.0) % Plt Count 199 (150-400) K/uL MPV 9.80 (7.40-12.00) fL Neut % (Auto) 60.5 (48.0-80.0) % Lymph % (Auto) 25.5 (16.0-40.0) % [place] % (Auto) 11.6 (0.0-15.0) % Eos % (Auto) 2.0 (0.0-7.0) % Baso % (Auto) 0.4 (0.0-1.5) % Neut # (Auto) 3.3 (1.4-5.7) K/uL Lymph # (Auto) 1.4 (0.6-2.4) K/uL [place] # (Auto) 0.6 (0.0-0.8) K/uL Eos # (Auto) 0.1 (0.0-0.7) K/uL Baso # (Auto) 0.0 (0.0-0.1) K/uL Nucleated RBC % 0.0 /100WBC Nucleated RBCs # 0 K/uL Sodium 142 (136-148) mmol/L Potassium 4.6 (3.5-5.1) mmol/L Chloride 107 (98-107) mmol/L Carbon Dioxide 26.8 (21.0-32.0) mmol/L BUN 28 H (7.0-18.0) mg/dL Creatinine 1.2 (0.8-1.3) mg/dL Est Cr Clr Drug Dosing 41.08 mL/min Estimated GFR (MDRD) 59.0 ml/min Glucose 94 (74-106) mg/dL Calcium 9.3 (8.5-10.1) mg/dL Total Bilirubin 0.3 (0.2-1.0) mg/dL AST 21 (15-37) IU/L ALT 27 (14-63) IU/L Alkaline Phosphatase 94 (46-116) U/L Troponin I < 0.050 (0.000-0.056) ng/mL Total Protein 8.1 (6.4-8.2) g/dL Albumin 3.9 (3.4-5.0) g/dL Globulin 4.2 H (2.6-4.0) g/dL Albumin/Globulin Ratio 0.9 (0.9-1.6) Meds: Medications Discontinued Medications Generic Name Dose Route Start Last Admin Trade Name Freq PRN Reason Stop Dose Admin Iopamidol 100 ml 01/16/20 18:21 01/16/20 18:21 Isovue Multipack-370 (76%) IVPUSH 01/16/20 18:22 100 ml ONETIME ONE Administration Sodium Chloride 10 ml 01/16/20 17:01 01/16/20 18:46 Saline Flush FLUSH 10 ml ASDIRECTED PRN Administration Keep Vein Open Sodium Chloride 2.5 ml 01/16/20 17:01 01/16/20 18:46 Saline Flush FLUSH 2.5 ml ASDIRECTED PRN Administration Keep Vein Open Sepsis Event Note (ED) - Evaluation Sepsis Screening Result: No Definite Risk - Focused Exam Vital Signs: Vital Signs Temp Pulse Resp BP Pulse Ox 01/16/20 19:46 36.8 C 79 16 142/68 H 100 01/16/20 19:45 55 L 17 133/43 L 96 - My Orders Last 24 Hours: My Active Orders 01/16/20 17:01 Saline Lock Insert [OM.PC] Stat - Assessment/Plan Last 24 Hours: My Active Orders 01/16/20 17:01 Saline Lock Insert [OM.PC] Stat
[2020-01-16 17:45] LABS: BLOOD UREA NITROGEN,BUN 28 mg/dL (7.0-18.0); CARBON DIOXIDE,CO2 26.8 mmol/L (21.0-32.0); CHLORIDE,CL 107 mmol/L (98-107); GLUCOSE RANDOM 94 mg/dL (74-106); POTASSIUM,K 4.6 mmol/L (3.5-5.1); SODIUM,NA 142 mmol/L (136-148)
[2020-01-16] MEDS ORDERED: Iopamidol 755 MG/ML 500 ML Multipack Bottle IVPUSH ONE (18:21)
--- NOTE | 2020-01-16 18:44 | CT ---
Indication: Subacute headache after trauma Technique: Volumetric multidetector CT images of the head were obtained without the administration of low osmolar intravenous contrast. Comparison: CT head August 31, 2019 Findings: There is no intra-axial or extra-axial fluid collection. There is no mass effect or midline shift. There is age-related cortical atrophy with mild sulcal widening and ex vacuo dilatation of the lateral ventricles. There is encephalomalacia of the right occipital lobe and right frontal lobe similar to previous exam. Otherwise, the brain parenchyma is grossly preserved in attenuation and george-white differentiation. The orbits and their contents are grossly within normal limits. The bony calvarium is grossly intact. The paranasal sinuses are clear. The mastoid air cells are well aerated. 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 Please note that all CT scans at this facility use dose modulation, iterative reconstruction, and/or weight-based dosing when appropriate to reduce radiation dose to as low as reasonably achievable. Dictated by Arvin De Leon MD @ Jan 16 2020 6:38PM Signed by Dr. Arvin De Leon @ Jan 16 2020 6:43PM
--- NOTE | 2020-01-16 18:57 | CT ---
Indication: Subacute light-headedness Technique: Volumetric multidetector CT images of the cerebral vasculature were obtained after the administration of intravenous contrast using angiographic technique. Maximum intensity projections and 3-D reconstructions were performed. 100 cc Isovue 370 Comparison: None available. Findings: HEAD: There is no midline shift or mass effect. There is no abnormal contrast enhancement. [place]-white differentiation is otherwise preserved. The orbits are grossly intact. There is minimal mucosal thickening seen within the paranasal sinuses. The mastoid air cells are clear. The skull base carotid arteries are grossly unremarkable without evidence of atherosclerotic disease or filling defect. The anterior cerebral arteries are patent. The middle cerebral arteries are grossly patent. There is demonstration of mild irregularity of the posterior cerebral arteries right greater than left with demonstration of replacement of the right posterior cerebral artery as well as a patent left posterior communicating artery. The anterior communicating artery is patent. The basilar artery is grossly patent without significant dolichoectasia. There is a dominant right [place] and a hypoplastic left vertebral artery. Impression: Demonstration of mild atherosclerotic irregularity of the right greater than left P1 segments of the posterior cerebral artery without evidence of high-grade narrowing, aneurysm or vascular malformation. Please note that all CT scans at this facility use dose modulation, iterative reconstruction, and/or weight-based dosing when appropriate to reduce radiation dose to as low as reasonably achievable. Dictated by Arvin De Leon MD @ Jan 16 2020 6:43PM Signed by Dr. Arvin De Leon @ Jan 16 2020 6:55PM
--- NOTE | 2020-01-16 19:03 | CT ---
Indication: Subacute light-headedness Technique: Volumetric multidetector CT images of the cervical vasculature were obtained after the administration of intravenous contrast using angiographic technique. Maximum intensity projections and 3-D reconstructions were performed. Findings were interpreted according to the NASCET criteria. 100 cc Isovue 370 Comparison: None available. Findings: The partially visualized brain parenchyma demonstrates encephalomalacia of the right frontal lobe as well as the right occipital lobe. The mastoid air cells are clear. The visualized [place] is grossly unremarkable. The oropharynx, hypopharynx, and larynx are unremarkable. There is no pathologically enlarged cervical lymph node. The thoracic aorta demonstrates a normal supraarch branching pattern without significant atherosclerotic disease. The common carotid arteries are patent. The right internal carotid artery demonstrates minimal calcified and soft mural plaque without evidence of high-grade narrowing. The left internal carotid artery demonstrates a minimal amount of calcified and soft mural plaque without evidence of high-grade narrowing. There is a dominant right and a mildly hypoplastic left vertebral artery. The cervical vertebral body heights are grossly maintained with mild multi-level degenerative disc disease. There is no significant spondylolisthesis or facet arthrosis. There is no displaced fracture. There is mild biapical pleural thickening. Impression: Minimal calcified atherosclerotic plaque at the bilateral bifurcations without evidence of clinically significant stenosis. Please note that all CT scans at this facility use dose modulation, iterative reconstruction, and/or weight-based dosing when appropriate to reduce radiation dose to as low as reasonably achievable. Dictated by Arvin De Leon MD @ Jan 16 2020 6:43PM Signed by Dr. Arvin De Leon @ Jan 16 2020 7:03PM
[2020-01-16 19:47] VITALS: BP 142/68; PULSE 79
== END 2020-01-16 19:55 | disposition home or self-care (01) ==
LOC: MW.ED 16:41
DX: R42 Dizziness and giddiness (principal); R00.1 Bradycardia, unspecified; Z86.73 Personal history of transient ischemic attack (TIA), and cerebral infarction without residual deficits; Z79.02 Long term (current) use of antithrombotics/antiplatelets
CPT/HCPCS: 70450; 70496; 70498; 80053; 84484; 85025; 93005; 99284; Q9967; 93010; 99283

== ENCOUNTER 2020-04-05 15:11 | Emergency (ER) | payer MEDICARE, BC, MEDICAID ==
--- NOTE | 2020-04-05 15:30 | EDM.PDOC ---
ED HPI GENERAL MEDICAL PROBLEM - General Chief Complaint: Upper Extremity Injury/Pain Stated Complaint: PAINFUL LUMP ON FINGER L/HAND Time Seen by Provider: 04/05/20 15:18 Source of Information: Reports: Patient History Limitations: Reports: No Limitations - History of Present Illness INITIAL COMMENTS - FREE TEXT/NARRATIVE: 74-year-old male presents with painful lesion to the left third digit worsening over the past 3 months. He denies any trauma, fever, redness. He notices worsening swelling over the past month. ROS: A 10-point review of systems, other than pertinent positives and negatives as stated per HPI, is otherwise negative Past medical history: No additional pertinent history Past Surgical history: No additional pertinent history Social history: No additional pertinent history Family history: No additional pertinent history PHYSICAL EXAM General: AOx4, GCS = 15, No distress HEENT: dry mucous membrane Neck: supple, no meningismus, no Kernig or Brudzinski Cardiac: S1S2 RRR Respiratory: CTAB, no crackles or rales, no wheezing Abdomen: Soft, nontender, no rebound or guarding, nondistended, no pulsatile mass. Back: nontender Musculoskeletal: NVI distally, callus to the left third digit PIP joint, no surrounding erythema, normal range of motion and strength with flexion and extension at PIP/DIP/MCP joint. Neuro: No focal deficits, CN 2 - 12 WNL. - Related Data Allergies Allergy/AdvReac Type Severity Reaction Status Date / Time No Known Allergies Allergy Verified 04/05/20 15:27 Home Meds: Home Meds Clopidogrel [Plavix] 75 mg PO DAILY 08/31/19 [History] carBAMazepine [TEGretol XR] 100 mg PO DAILY 08/31/19 [History] Metoprolol Succinate [Toprol XL 50mg] 50 mg PO DAILY 30 Days #30 tab.er 01/14/20 [Rx] Phenytoin 04/05/20 [History] Podofilox 3.5 ml TP BID #35 ml 04/05/20 [Rx] 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".....last seizure was about 7 months ago Psychiatric History: Reports: None Endocrine/Metabolic History: Reports: None Insulin Pump Model and Job Hand: None Hematologic History: Reports: Other (See Below) Other Hematologic History: stopped Plavix 2 months ago Immunologic History: Reports: None Oncologic (Cancer) History: Reports: None Dermatologic History: Reports: None - Infectious Disease History Infectious Disease History: Reports: None - Past Surgical History Head Surgeries/Procedures: Reports: None HEENT Surgical History: Reports: Cataract Surgery GI Surgical History: Reports: Appendectomy, Colonoscopy Male Surgical History: Reports: Prostatectomy Other Male Surgeries/Procedures: prostate surgery Musculoskeletal Surgical History: Reports: Arthroscopic Knee, ORIF, Shoulder Surgery Other Musculoskeletal Surgeries/Procedures:: ORIF right clavicle and ribs Social & Family History - Family History Family Medical History: No Pertinent Family History - Caffeine Use Caffeine Use: Reports: Coffee Review of Systems - Review of Systems Review Of Systems: See Below (see dictation) ED EXAM, GENERAL - Physical Exam Exam: See Below (see dictation) Course - Vital Signs Last Recorded V/S: Last Vital Signs Temp 97.3 F 04/05/20 15:23 Pulse 81 04/05/20 15:23 Resp 18 04/05/20 15:23 BP 140/85 04/05/20 15:23 Pulse Ox 95 04/05/20 15:23 - Orders/Labs/Meds Orders: Active Orders 24 hr Category Date Time Status Fingers Third Digit Lt F2 [CR] Stat Exams 04/05/20 15:30 Ordered - Re-Assessments/Exams Free Text/Narrative Re-Assessment/Exam: 04/05/20 15:32 Patient is cleared for discharge, I advised the patient to return to the ER for reevaluation if symptoms worsened, including fever, worsening pain, or any other worrisome symptoms. I instructed the patient to follow up with their PCP within 2-3 days. MEDICAL DECISION MAKING: I reviewed the patients past medical records, lab and radiographic findings. I discussed the case with the patient. My differential diagnosis included: Callus, cellulitis, abscess, foreign body, Departure - Departure Time of Disposition: 15:44 Disposition: Home, Self-Care 01 Condition: Good Clinical Impression: Callus - Discharge Information *PRESCRIPTION DRUG MONITORING PROGRAM REVIEWED*: Not Applicable *COPY OF PRESCRIPTION DRUG MONITORING REPORT IN PATIENT [place]: Not Applicable Prescriptions: Podofilox 3.5 ml TP BID #35 ml Instructions: Corns and Calluses Referrals: Pratik Harrington MD [Primary Care Provider] - 1 Week Forms: ED Department Discharge Additional Instructions: The need for follow-up, as well as the timing and circumstances, are variable depending upon the specifics of your emergency department visit. If you don't have a primary care physician on staff, we will provide you with a referral. We always advise you to contact your personal physician following an emergency department visit to inform them of the circumstance of the visit and for follow-up with them and/or the need for any referrals to a consulting specialist. The emergency department will also refer you to a specialist when appropriate. This referral assures that you have the opportunity for follow-up care with a specialist. All of these measure are taken in an effort to provide you with optimal care, which includes your follow-up. Under all circumstances we always encourage you to contact your private physician who remains a resource for coordinating your care. When calling for follow-up care, please make the office aware that this follow-up is from your recent emergency room visit. If for any reason you are refused follow-up, please contact the [facility] Emergency Department at and asked to speak to the emergency department charge nurse. If you do not have a primary care doctor, please follow up with the clinics below within 3-5 days. [facility] - Primary Care [address] [place] [address] [facility] [address] [place] [address] Sepsis Event Note (ED) - Focused Exam Vital Signs: Vital Signs Temp Pulse Resp BP Pulse Ox 04/05/20 15:23 97.3 F 81 18 140/85 95 - My Orders Last 24 Hours: My Active Orders 04/05/20 15:30 Fingers Third Digit Lt F2 [CR] Stat - Assessment/Plan Last 24 Hours: My Active Orders 04/05/20 15:30 Fingers Third Digit Lt F2 [CR] Stat
--- NOTE | 2020-04-05 16:36 | CR ---
INDICATION: PIP joint lesion TECHNIQUE: Three views 3rd digit left hand COMPARISON: None FINDINGS: Bones: Alignment is normal. No fractures or bone lesions. Joint spaces: Degenerative changes PIP and DIP joint spaces. Soft tissues: Soft tissue edema/thickening anterior to the PIP joint. IMPRESSION: Soft tissue edema/thickening anterior to the PIP joint 3rd digit. Degenerative changes PIP and DIP joint spaces. Dictated by Giovanni Albarran MD @ Apr 05 2020 4:35PM Signed by Dr. Giovanni Albarran @ Apr 05 2020 4:35PM
[2020-04-05 16:59] VITALS: BP 120/46; PULSE 75
== END 2020-04-05 16:55 | disposition home or self-care (01) ==
LOC: MW.ED 15:11
DX: L84 Corns and callosities (principal); R56.9 Unspecified convulsions; Z86.73 Personal history of transient ischemic attack (TIA), and cerebral infarction without residual deficits; Z79.899 Other long term (current) drug therapy
CPT/HCPCS: 73140-26-F2; 73140-F2; 99283; 99283-25

== ENCOUNTER 2020-08-31 06:21 | Day surgery (SDC) | payer MEDICARE, BC ==
[~2020-08-31 06:21] MED LIST: Lactated Ringers 1,000 ML IV SCH
[2020-08-31] MEDS ORDERED: propofoL 50 ML ONE (06:56)
[2020-08-31] MEDS ORDERED: Lidocaine 2% 5 ML SDV ONE (07:05)
[2020-08-31] MEDS ORDERED: fentaNYL 100 MCG/2 ML SDV ONE (07:06)
--- NOTE | 2020-08-31 07:37 | PCM.PREANE ---
Preanesthetic Assessment - Anesthesia/Transfusion/Family Hx Anesthesia History: Prior Anesthesia Without Reaction Family History of Anesthesia Reaction: No Transfusion History: No Prior Transfusion(s) Intubation History: Unknown - Review of Systems General: Fatigue Pulmonary: Shortness of Breath Cardiovascular: Dyspnea on Exertion Gastrointestinal: No Symptoms Neurological: No Symptoms Other: Reports: Depression - Physical Assessment NPO Status Date: 08/31/20 NPO Status Time: 00:00 Vital Signs: Last Vital Signs Temp 97.5 F 08/31/20 06:55 Pulse 65 08/31/20 06:55 Resp 16 08/31/20 06:55 BP 128/66 08/31/20 06:55 Pulse Ox 97 08/31/20 06:55 Height: 5 ft 6 in Weight: 170 lb ASA Class: 3 Airway Class: Mallampati = 3 Dentition: Reports: Missing Tooth/Teeth Thyro-Mental Finger Breadths: 3 Mouth Opening Finger Breadths: 3 ROM/Head Extension: Full Lungs: Clear to Auscultation, Normal Respiratory Effort Cardiovascular: Regular Rate, Regular Rhythm - Lab Values: Laboratory Last Values POC Glucose 71 mg/dL (70-99) 08/31/20 06:45 - Allergies Allergies/Adverse Reactions: Allergies Allergy/AdvReac Type Severity Reaction Status Date / Time No Known Allergies Allergy Verified 08/31/20 07:09 - Anesthesia Plan Pre-Op Medication Ordered: Other (Scopolamine) - Acknowledgements Anesthesia Type Planned: General Anesthesia Pt an Appropriate Candidate for the Planned Anesthesia: Yes Alternatives and Risks of Anesthesia Discussed w Pt/Guardian: Yes Pt/Guardian Understands and Agrees with Anesthesia Plan: Yes PreAnesthesia Questionnaire HEENT History: Reports: Other (See Below) Other HEENT History: wears glasses Cardiovascular History: Reports: Hypertension Other Cardiovascular History: stopped Atorvastatin 2 months ago Respiratory History: Reports: None Other Respiratory History: denies sleep apnea Gastrointestinal History: Reports: None Genitourinary History: Reports: BPH Musculoskeletal History: Reports: Fracture Other Musculoskeletal History: hx of fx ribs, clavicle and left foot Neurological History: Reports: Concussion, CVA, Head Trauma, Seizure Other Neuro History: seizures started after stroke, states has some memory issues after stroke Psychiatric History: Reports: None Endocrine/Metabolic History: Reports: Diabetes, Type II Other Endocrine/Metabolic History: states Pre-diabetic Hematologic History: Reports: Anticoagulation Therapy Other Hematologic History: stoped Plavix 08/24/20 Immunologic History: Reports: None Oncologic (Cancer) History: Reports: None Dermatologic History: Reports: None - Infectious Disease History Infectious Disease History: Reports: None - Past Surgical History Head Surgeries/Procedures: Reports: None HEENT Surgical History: Reports: None Cardiovascular Surgical History: Reports: None Respiratory Surgical History: Reports: None GI Surgical History: Reports: Appendectomy, Colonoscopy Male Surgical History: Reports: Prostatectomy Other Male Surgeries/Procedures: prostate surgery Endocrine Surgical History: Reports: None Neurological Surgical History: Reports: None Musculoskeletal Surgical History: Reports: Arthroscopic Knee, ORIF, Shoulder Surgery Other Musculoskeletal Surgeries/Procedures:: left foot and ribs and clavicle, shoulder arthroscopy Oncologic Surgical History: Reports: None Dermatological Surgical History: Reports: None - SUBSTANCE USE Tobacco Use Status *Q: Never Tobacco User Recreational Drug Use History: No - HOME MEDS Home Medications: Home Meds Clopidogrel [Plavix] 75 mg PO DAILY 08/31/19 [History] carBAMazepine [TEGretol XR] 100 mg PO BEDTIME 08/31/19 [History] Benazepril HCl 5 mg PO QPM 08/28/20 [History] Ergocalciferol (Vitamin D2) [Vitamin D2] 50,000 unit PO ASDIRECTED 08/28/20 [History] metFORMIN HCl [Metformin HCl ER] 1,000 mg PO DAILY 08/28/20 [History] - CURRENT (IN HOUSE) MEDS Current Meds: Current Medications Lactated Ringer's (Ringers, Lactated) 1,000 mls @ 125 mls/hr IV ASDIRECTED ANKITA Last Admin: 08/31/20 07:00 Dose: 125 mls/hr Documented by: Discontinued Medications Fentanyl (Fentanyl 100 Mcg/2 Ml Sdv) Confirm Administered Dose 100 mcg .ROUTE .STK-MED ONE Stop: 08/31/20 07:07 Propofol (Diprivan 50 Ml) Confirm Administered Dose 50 mls @ as directed .ROUTE .STK-MED ONE Stop: 08/31/20 06:57 Lidocaine (Lidocaine 2% 5 Ml Sdv) Confirm Administered Dose 5 ml .ROUTE .STK-MED ONE Stop: 08/31/20 07:06
[2020-08-31] MEDS ORDERED: Ondansetron 4 MG/2 ML SDV ONE (07:56)
--- NOTE | 2020-08-31 08:21 | PCM.OPNOTE ---
- General Post-Op/Procedure Note Date of Surgery/Procedure: 08/31/20 Operative Procedure(s): Esophagogastroduodenoscopy with biopsy. Colonoscopy. Pre Op Diagnosis: Melena. Family history of colon cancer. Post-Op Diagnosis: Moderate chronic gastritis. Mild internal hemorrhoids. Anesthesia Technique: MAC (ASA III) Primary Surgeon: Jean Marie Meehan Condition: Good Free Text/Narrative:: DICTATION [id number] CPT CODE [id number]
--- NOTE | 2020-08-31 08:25 | PCM.POSTAN ---
POST ANESTHESIA ASSESSMENT - MENTAL STATUS Mental Status: Alert, Oriented - VITAL SIGNS Vital Signs: Last Vital Signs Temp 97.5 F 08/31/20 06:55 Pulse 65 08/31/20 06:55 Resp 16 08/31/20 06:55 BP 128/66 08/31/20 06:55 Pulse Ox 97 08/31/20 06:55 - RESPIRATORY Respiratory Status: Respiratory Rate WNL, Airway Patent, O2 Saturation Stable - CARDIOVASCULAR CV Status: Pulse Rate WNL, Blood Pressure Stable - GASTROINTESTINAL GI Status: No Symptoms - POST OP HYDRATION Hydration Status: Adequate & Stable
--- NOTE | 2020-08-31 08:25 | PCM48HPAN ---
Post Anesthesia Note - EVALUATION WITHIN 48HRS OF ANESTHETIC Vital Signs in Normal Range: Yes Patient Participated in Evaluation: Yes Respiratory Function Stable: Yes Airway Patent: Yes Cardiovascular Function Stable: Yes Hydration Status Stable: Yes Pain Control Satisfactory: Yes Nausea and Vomiting Control Satisfactory: Yes Mental Status Recovered: Yes Vital Signs: Last Vital Signs Temp 97.5 F 08/31/20 06:55 Pulse 65 08/31/20 06:55 Resp 16 08/31/20 06:55 BP 128/66 08/31/20 06:55 Pulse Ox 97 08/31/20 06:55
[2020-08-31 08:26] VITALS: PULSE 54
[2020-08-31] MEDS ORDERED: Lactated Ringers 1,000 ML IV SCH (08:30)
[2020-08-31 08:44] VITALS: BP 142/65
--- NOTE | 2020-08-31 12:34 | OR ---
SURGEON: Jean Marie Meehan M.D. DATE OF PROCEDURE: 08/31/2020 OPERATION PERFORMED: Esophagogastroduodenoscopy with biopsy. PRIMARY SURGEON: Jean Marie Meehan MD ANESTHESIA: MAC. ASA CLASSIFICATION: III. PREOPERATIVE DIAGNOSIS: Melenic stool. POSTOPERATIVE DIAGNOSES: Moderate chronic gastritis without ulceration. DESCRIPTION OF PROCEDURE: The patient was taken to the endoscopy room, positioned on the endoscopy table in the left lateral decubitus position. Time-out was called for appropriate identification of the patient and procedure. Monitored anesthesia care was provided. Bite block was placed between the patient's teeth. The gastroscope was inserted through the bite block and advanced through the oropharynx, into the esophagus, and subsequently through the stomach into the duodenum where examination was now carried out in a retrograde fashion. The duodenum showed no acute inflammatory changes or ulcerations. The gastroscope was withdrawn to the distal stomach, which does show a moderate chronic gastritis without ulceration. Antral biopsies were obtained as well as biopsies of the greater curvature. The gastroscope was retroflexed to visualize the proximal stomach. No tumors, polyps, or ulcerations were noted. The gastroscope was then straightened and slowly withdrawn. The GE junction was well defined and shows no acute inflammatory changes or ulcerations. The esophagus itself demonstrates good contractility. The vocal cords were briefly visualized as the scope was withdrawn. Vocal cords moved symmetrically and no vocal cord lesions were identified. The gastroscope was then removed with the patient having tolerated this portion of the procedure well. Following colonoscopy, he was taken to recovery room in stable condition. CHRISTIANO / CIARA /[id number]
--- NOTE | 2020-08-31 16:23 | OR ---
SURGEON: Jean Marie Meehan M.D. DATE OF PROCEDURE: 08/31/2020 OPERATION PERFORMED: Colonoscopy. PRIMARY SURGEON: Jean Marie Mehean M.D. ANESTHESIA: MAC. ASA CLASSIFICATION: III. PREOPERATIVE DIAGNOSES: 1. Melanotic stool. 2. Family history of colorectal cancer. POSTOPERATIVE DIAGNOSIS: No evidence of neoplasia. DESCRIPTION OF PROCEDURE: With the patient having completed upper GI endoscopy, he was maintained in the left lateral decubitus position. The colonoscope was inserted into the rectum and advanced with minimal difficulty to the cecum. The cecum was identified by internal landmarks and external pressure. The colonoscope was retroflexed to visualize the ascending colon from below, then straightened, and slowly withdrawn. The cecum, ascending colon, hepatic flexure, transverse colon, splenic flexure, descending colon, sigmoid colon, and rectum were very well visualized. No tumors, polyps, diverticula, or angiodysplastic changes were noted. Once the colonoscope was withdrawn to the rectum, I was able to retroflex this and visualize the anal orifice from above. Again, no tumors or polyps were seen. There were some mild hemorrhoidal changes but no acute bleeding. The colonoscope was then straightened, the rectum aspirated, and the colonoscope removed. The patient was taken to recovery room in stable condition. CHRISTIANO / CIARA /[id number]
== END 2020-08-31 08:45 | disposition home or self-care (01) ==
LOC: MW.SDS 06:21
PROVIDERS: ATTEND Surgery
DX: K29.50 Unspecified chronic gastritis without bleeding (principal); K22.70 Barrett's esophagus without dysplasia; K22.8 Other specified diseases of esophagus; K64.8 Other hemorrhoids; E11.9 Type 2 diabetes mellitus without complications; I10 Essential (primary) hypertension; G47.30 Sleep apnea, unspecified; I69.993 Ataxia following unspecified cerebrovascular disease; Z79.84 Long term (current) use of oral hypoglycemic drugs; Z79.899 Other long term (current) drug therapy
CPT/HCPCS: 43239; 45378; 82947; J2405; J2704; J3010; J7120; 00813; 99100

== ENCOUNTER 2021-04-02 16:50 | Emergency (ER) | payer MEDICARE, BC ==
[2021-04-02 17:58] VITALS: BP 110/47; PULSE 63
[2021-04-02] MEDS ORDERED: Diphtheria,Pertussis(Acell),Tetanus Vaccine 0.5 ML Syringe IM ONE (18:09)
[2021-04-02] MEDS ORDERED: Cephalexin 500 MG Cap PO ONE (18:09)
== END 2021-04-02 18:45 | disposition home or self-care (01) ==
LOC: MW.ED 16:50
DX: S61.241A Puncture wound with foreign body of left index finger without damage to nail, initial encounter (principal); I10 Essential (primary) hypertension; E11.9 Type 2 diabetes mellitus without complications; Z23 Encounter for immunization; Z79.01 Long term (current) use of anticoagulants; Z79.02 Long term (current) use of antithrombotics/antiplatelets; Z79.84 Long term (current) use of oral hypoglycemic drugs; Z79.899 Other long term (current) drug therapy; W31.0XXA Contact with mining and earth-drilling machinery, initial encounter
CPT/HCPCS: 12001; 73130; 90471; 90715; 99283; A9270

== ENCOUNTER 2021-04-08 22:32 | Emergency (ER) | payer MEDICARE, BC ==
[2021-04-09 01:28] VITALS: BP 121/54; PULSE 59
== END 2021-04-09 01:28 | disposition home or self-care (01) ==
LOC: MW.ED 22:32
DX: R00.2 Palpitations (principal); I10 Essential (primary) hypertension; E11.9 Type 2 diabetes mellitus without complications; N40.0 Benign prostatic hyperplasia without lower urinary tract symptoms; Z86.73 Personal history of transient ischemic attack (TIA), and cerebral infarction without residual deficits; Z79.899 Other long term (current) drug therapy; Z79.84 Long term (current) use of oral hypoglycemic drugs
CPT/HCPCS: 99284

== ENCOUNTER 2021-07-15 19:59 | Emergency (ER) | payer MEDICARE, BC, MEDICAID ==
[2021-07-15 23:46] VITALS: BP 136/66; PULSE 55
== END 2021-07-15 23:46 | disposition home or self-care (01) ==
LOC: MW.ED 19:59
DX: S01.01XA Laceration without foreign body of scalp, initial encounter (principal); I10 Essential (primary) hypertension; E11.9 Type 2 diabetes mellitus without complications; Z86.73 Personal history of transient ischemic attack (TIA), and cerebral infarction without residual deficits; Z90.49 Acquired absence of other specified parts of digestive tract; Z79.899 Other long term (current) drug therapy; Z79.84 Long term (current) use of oral hypoglycemic drugs; W01.10XA Fall on same level from slipping, tripping and stumbling with subsequent striking against unspecified object, initial encounter
CPT/HCPCS: 12001; 70450; 70450-26; 72125; 72125-26; 99283; 99283-25

== ENCOUNTER 2021-10-16 20:48 | Emergency (ER) | payer MEDICARE, BC | END 2021-10-16 23:15 | disposition home or self-care (01) | LOC: MW.ED 20:48 | DX: S00.431A Contusion of right ear, initial encounter (principal); I10 Essential (primary) hypertension; E11.9 Type 2 diabetes mellitus without complications; Z86.73 Personal history of transient ischemic attack (TIA), and cerebral infarction without residual deficits; Z79.02 Long term (current) use of antithrombotics/antiplatelets; Z79.899 Other long term (current) drug therapy; Z79.84 Long term (current) use of oral hypoglycemic drugs; W01.198A Fall on same level from slipping, tripping and stumbling with subsequent striking against other object, initial encounter | CPT/HCPCS: 70450; 70450-26; 99282; 99283 ==

== ENCOUNTER 2022-01-01 12:53 | Emergency (ER) | payer MEDICARE, BC ==
[2022-01-01 14:24] VITALS: BP 152/74; PULSE 65
[2022-01-01] MEDS ORDERED: Tetracaine HCl/PF 0.5% 4 ML Bottle ONE (14:27)
[2022-01-01] MEDS ORDERED: Diphtheria,Pertussis(Acell),Tetanus Vaccine 0.5 ML Syringe IM ONE (16:00)
[2022-01-01] MEDS ORDERED: Tetracaine HCl/PF 0.5% 4 ML Bottle EYELF ONE (16:12)
== END 2022-01-01 16:18 | disposition home or self-care (01) ==
LOC: MW.ED 12:53
DX: S05.02XA Injury of conjunctiva and corneal abrasion without foreign body, left eye, initial encounter (principal); I10 Essential (primary) hypertension; E11.9 Type 2 diabetes mellitus without complications; Z79.899 Other long term (current) drug therapy; Z79.84 Long term (current) use of oral hypoglycemic drugs; Z90.49 Acquired absence of other specified parts of digestive tract; Z23 Encounter for immunization; W45.8XXA Other foreign body or object entering through skin, initial encounter
CPT/HCPCS: 90471; 90715; 99283-25

== ENCOUNTER 2022-04-25 10:34 | Emergency (ER) | payer MEDICARE, BC ==
[2022-04-25 10:54] VITALS: BP 142/65
[2022-04-25] MEDS ORDERED: Octyl 2-Cyanoacrylate 1 g/1 mL 1 APPLIC PEN TOP STA (10:56)
[2022-04-25 11:14] VITALS: PULSE 88
== END 2022-04-25 11:14 | disposition home or self-care (01) ==
LOC: MW.ED 10:34
DX: S01.81XA Laceration without foreign body of other part of head, initial encounter (principal); E11.9 Type 2 diabetes mellitus without complications; Z79.899 Other long term (current) drug therapy; Z79.84 Long term (current) use of oral hypoglycemic drugs; Z86.73 Personal history of transient ischemic attack (TIA), and cerebral infarction without residual deficits; Z90.49 Acquired absence of other specified parts of digestive tract; W26.8XXA Contact with other sharp object(s), not elsewhere classified, initial encounter
CPT/HCPCS: 12013; 99282; A9270

== ENCOUNTER 2022-07-03 08:47 | Emergency (ER) | payer MEDICARE, BC ==
[2022-07-03 09:39] VITALS: PULSE 68
[2022-07-03] MEDS ORDERED: Lidocaine 1% 5 ML VIAL INJECT STA (10:52)
[2022-07-03 11:59] VITALS: BP 158/77
== END 2022-07-03 11:59 | disposition home or self-care (01) ==
LOC: MW.ED 08:47
DX: S60.454A Superficial foreign body of right ring finger, initial encounter (principal); I10 Essential (primary) hypertension; E11.9 Type 2 diabetes mellitus without complications; Z86.73 Personal history of transient ischemic attack (TIA), and cerebral infarction without residual deficits; Z79.02 Long term (current) use of antithrombotics/antiplatelets; W45.8XXA Other foreign body or object entering through skin, initial encounter
CPT/HCPCS: 10120; 99282; J3490

== ENCOUNTER 2022-11-05 18:46 | Emergency (ER) | payer MEDICARE, BC ==
[2022-11-05 19:41] LABS: BASOPHILS PERCENT AUTO 0.5 % (0.0-1.5); EOSINOPHILS ABSOLUTE AUTO 0.1 K/uL (0.0-0.7); EOSINOPHILS PERCENT AUTO 2.7 % (0.0-7.0); HEMOGLOBIN 12.2 g/dL (13.0-17.0); LYMPHOCYTES ABSOLUTE AUTO 1.3 K/uL (0.6-2.4); LYMPHOCYTES PERCENT AUTO 32.2 % (16.0-40.0); MEAN CORPUSCULAR HEMOGLOBIN 29.3 pg (27.0-32.0); MEAN CORPUSCULAR HGB CONC 32.1 g/dL (31.0-37.0); MEAN CORPUSCULAR VOLUME 91.3 fL (80.0-98.0); MONOCYTES ABSOLUTE AUTO 0.4 K/uL (0.0-0.8); MONOCYTES PERCENT AUTO 9.7 % (0.0-15.0); NEUTROPHILS ABSOLUTE AUTO 2.2 K/uL (1.4-5.7); NEUTROPHILS PERCENT AUTO 54.9 % (48.0-80.0); NRBC ABSOLUTE 0 K/uL; PLATELET COUNT,PLT 170 K/uL (150-400); RED BLOOD CELL COUNT 4.16 M/uL (4.50-5.90); WHITE BLOOD CELL COUNT,WBC 4.01 K/uL (4.0-11.0)
[2022-11-05 19:58] LABS: ALBUMIN 3.6 g/dL (3.4-5.0); BILIRUBIN TOTAL 0.4 mg/dL (0.2-1.0); CALCIUM 8.6 mg/dL (8.5-10.1); CARBON DIOXIDE,CO2 27.5 mmol/L (21.0-32.0); CREATININE 1.1 mg/dL (0.8-1.3); EST CRCL DRUG DOSING (CG) 44.54 mL/min; POTASSIUM,K 4.7 mmol/L (3.5-5.1); PROTEIN TOTAL,TP 7.1 g/dL (6.4-8.2)
[2022-11-05] MEDS ORDERED: Albuterol 0.083% 2.5 MG/3 ML Neb Soln NEB ONE (20:07)
[2022-11-05] MEDS ORDERED: Lidocaine 4% 1 each Patch TOP SCH (20:15)
[2022-11-05] MEDS ORDERED: Iopamidol 755 MG/ML 500 ML Multipack Bottle IVPUSH ONE (21:29)
[2022-11-05 22:46] VITALS: BP 130/60; PULSE 63
== END 2022-11-05 22:30 | disposition home or self-care (01) ==
LOC: MERGE 18:46 → MW.ED 18:46
DX: R07.89 Other chest pain (principal); E11.9 Type 2 diabetes mellitus without complications
CPT/HCPCS: 36415; 71045; 71045-26; 71260; 71260-26; 80053; 84484; 85025; 85379; 93010; 99284; A9270-GY; J7620-GY; Q9967

== ENCOUNTER 2022-11-14 08:41 | Day surgery (SDC) | payer MEDICARE, BC ==
[2022-11-14] MEDS ORDERED: fentaNYL 100 MCG/2 ML SDV ONE (09:14)
[2022-11-14] MEDS ORDERED: propofoL 50 ML ONE (09:14)
[2022-11-14] MEDS ORDERED: ePHEDrine 50 MG/ML SDV ONE (11:05)
[2022-11-14 11:49] VITALS: BP 158/97; PULSE 76
== END 2022-11-14 12:04 | disposition home or self-care (01) ==
LOC: MW.SDS 08:41
PROVIDERS: ATTEND Surgery
DX: K62.89 Other specified diseases of anus and rectum (principal); K64.8 Other hemorrhoids; I11.0 Hypertensive heart disease with heart failure; I50.30 Unspecified diastolic (congestive) heart failure; N40.0 Benign prostatic hyperplasia without lower urinary tract symptoms; I25.10 Atherosclerotic heart disease of native coronary artery without angina pectoris; F32.A Depression, unspecified; E03.9 Hypothyroidism, unspecified; E78.00 Pure hypercholesterolemia, unspecified; E11.9 Type 2 diabetes mellitus without complications; G47.00 Insomnia, unspecified; G40.109 Localization-related (focal) (partial) symptomatic epilepsy and epileptic syndromes with simple partial seizures, not intractable, without status epilepticus; G47.30 Sleep apnea, unspecified; Z80.0 Family history of malignant neoplasm of digestive organs; Z79.82 Long term (current) use of aspirin; Z79.890 Hormone replacement therapy; Z79.899 Other long term (current) drug therapy; Z79.84 Long term (current) use of oral hypoglycemic drugs; Z95.1 Presence of aortocoronary bypass graft
CPT/HCPCS: 45378; J2704; J3010; J7120; J3490

== ENCOUNTER 2023-01-22 10:31 | Emergency (ER) | payer MEDICARE, BC, MEDICAID ==
[2023-01-22] MEDS ORDERED: Diphtheria,Pertussis(Acell),Tetanus Vaccine 0.5 ML Syringe IM ONE (10:50)
[2023-01-22 10:51] VITALS: BP 158/71; PULSE 60
== END 2023-01-22 11:43 | disposition home or self-care (01) ==
LOC: MW.ED 10:31
DX: S62.661A Nondisplaced fracture of distal phalanx of left index finger, initial encounter for closed fracture (principal); Z23 Encounter for immunization; I10 Essential (primary) hypertension; E78.00 Pure hypercholesterolemia, unspecified; Z86.73 Personal history of transient ischemic attack (TIA), and cerebral infarction without residual deficits; E11.9 Type 2 diabetes mellitus without complications; Z90.49 Acquired absence of other specified parts of digestive tract; Z79.01 Long term (current) use of anticoagulants; Z79.82 Long term (current) use of aspirin; Z79.899 Other long term (current) drug therapy; Z79.84 Long term (current) use of oral hypoglycemic drugs; W23.0XXA Caught, crushed, jammed, or pinched between moving objects, initial encounter
CPT/HCPCS: 73140-26-F1; 73140-F1; 90471; 90715; 99283; 99283-25

== ENCOUNTER 2023-02-20 15:17 | Emergency (ER) | payer MEDICARE, BC, MEDICAID ==
[2023-02-20 16:11] VITALS: BP 99/80; PULSE 71
[2023-02-20] MEDS ORDERED: Octyl 2-Cyanoacrylate 1 g/1 mL 1 APPLIC PEN TOP ONE (16:29)
[2023-02-20] MEDS ORDERED: Ketorolac 30 MG/ML SDV IVPUSH ONE (16:34)
[2023-02-20 17:02] LABS: BASOPHILS ABSOLUTE AUTO 0.01 K/uL (0.00-0.20); BASOPHILS PERCENT AUTO 0.2 % (0.0-1.0); EOSINOPHILS PERCENT AUTO 1.9 % (0.0-6.0); HEMATOCRIT 36.7 % (42.0-52.0); HEMOGLOBIN 12.4 g/dL (14.0-18.0); IMMATURE GRAN ABSOLUTE AUTO 0.02 K/uL (0.00-0.05); IMMATURE GRAN PERCENT AUTO 0.4 % (0.0-0.4); LYMPHOCYTES ABSOLUTE AUTO 1.01 K/uL (1.00-4.80); LYMPHOCYTES PERCENT AUTO 18.8 % (24.0-44.0); MEAN CORPUSCULAR HEMOGLOBIN 30.4 pg (28.0-32.0); MEAN CORPUSCULAR HGB CONC 33.8 g/dL (32.0-36.0); MEAN PLATELET VOLUME 10.1 fL (9.4-12.4); MONOCYTES ABSOLUTE AUTO 0.52 K/uL (0.00-0.80); MONOCYTES PERCENT AUTO 9.7 % (0.0-8.0); NEUTROPHILS ABSOLUTE AUTO 3.71 K/uL (1.80-7.70); PLATELET COUNT,PLT 154 K/uL (150-400); RED BLOOD CELL COUNT 4.08 M/uL (4.52-5.90); WHITE BLOOD CELL COUNT,WBC 5.37 K/uL (3.9-11.3)
[2023-02-20 17:18] LABS: A/G RATIO 1.1 (0.9-1.6); ALBUMIN 3.6 g/dL (3.4-5.0); BILIRUBIN TOTAL 0.3 mg/dL (0.2-1.0); CALCIUM 9.4 mg/dL (8.5-10.1); CARBON DIOXIDE,CO2 28.8 mmol/L (21.0-32.0); CREATININE 1.1 mg/dL (0.8-1.3); EST CRCL DRUG DOSING (CG) 44.54 mL/min; MAGNESIUM 1.8 mg/dL (1.8-2.4)
[2023-02-20] MEDS ORDERED: Iopamidol 755 MG/ML 500 ML Multipack Bottle IVPUSH STA (18:30)
[2023-02-20] MEDS ORDERED: Octyl 2-Cyanoacrylate 1 g/1 mL 1 APPLIC PEN ONE (20:01)
== END 2023-02-20 20:28 | disposition home or self-care (01) ==
LOC: MW.ED 15:17
DX: S00.91XA Abrasion of unspecified part of head, initial encounter (principal); E78.00 Pure hypercholesterolemia, unspecified; I10 Essential (primary) hypertension; E11.9 Type 2 diabetes mellitus without complications; E03.9 Hypothyroidism, unspecified; Z86.73 Personal history of transient ischemic attack (TIA), and cerebral infarction without residual deficits; Z79.82 Long term (current) use of aspirin; Z79.899 Other long term (current) drug therapy; Z79.84 Long term (current) use of oral hypoglycemic drugs; W01.198A Fall on same level from slipping, tripping and stumbling with subsequent striking against other object, initial encounter
CPT/HCPCS: 36415; 70450; 71260; 74177; 80053; 83690; 83735; 85025; 96374; 99284; A9270; J1885; Q9967

== ENCOUNTER 2023-04-22 08:55 | Day surgery (SDC) | payer MEDICARE, MEDICAID ==
[~2023-04-22 08:55] MED LIST changes: +Albuterol 0.083% 2.5 MG/3 ML Neb Soln NEB PRN; +HYDROmorphone 1 MG/ML Syringe IVPUSH PRN; -Lactated Ringers 1,000 ML IV SCH; +Metoclopramide 10 MG/2 ML SDV IVPUSH PRN; +Morphine 2 MG/ML SYRINGE IVPUSH PRN; +Naloxone 0.4 MG/ML SDV IVPUSH PRN; +Ondansetron 4 MG/2 ML SDV IVPUSH PRN; +droPERidol 5 MG/2 ML SDV IVPUSH PRN; +fentaNYL 50 MCG/ML SDV IVPUSH PRN
[2023-04-22] MEDS ORDERED: Propofol 200 MG/20 ML SDV ONE (09:16)
[2023-04-22] MEDS ORDERED: dexmedeTOMIDine HCl 200 MCG/2 ML SDV ONE (09:18)
[2023-04-22] MEDS: Lactated Ringers 1,000 ML IV SCH (09:28)
[2023-04-22 10:24] VITALS: BP 121/61; PULSE 51
== END 2023-04-22 10:28 | disposition home or self-care (01) ==
LOC: MW.SDS 08:55
PROVIDERS: ATTEND Surgery
DX: K29.50 Unspecified chronic gastritis without bleeding (principal); K31.A0 Gastric intestinal metaplasia, unspecified; I11.0 Hypertensive heart disease with heart failure; I50.30 Unspecified diastolic (congestive) heart failure; I25.10 Atherosclerotic heart disease of native coronary artery without angina pectoris; E03.9 Hypothyroidism, unspecified; E11.9 Type 2 diabetes mellitus without complications; E78.00 Pure hypercholesterolemia, unspecified; G47.30 Sleep apnea, unspecified; Z95.1 Presence of aortocoronary bypass graft; Z79.899 Other long term (current) drug therapy; Z79.82 Long term (current) use of aspirin; Z79.84 Long term (current) use of oral hypoglycemic drugs; Z79.890 Hormone replacement therapy
CPT/HCPCS: 43239; J2704; J7120; 00731; 88305; 88342; 99100; J3490

== ENCOUNTER 2023-10-14 21:17 | Emergency (ER) | payer MEDICARE, MEDICAID ==
[2023-10-14] MEDS: Sodium Chloride 0.9% 1,000 ML IV ONE (22:06)
[2023-10-14] MEDS: Metoclopramide 10 MG/2 ML SDV IVPUSH ONE (22:06)
[2023-10-14] MEDS: Ketorolac 30 MG/ML SDV IVPUSH ONE (22:28)
[2023-10-14 23:44] VITALS: BP 140/60; PULSE 61
== END 2023-10-14 23:20 | disposition home or self-care (01) ==
LOC: MW.ED 21:17
DX: R51.9 Headache, unspecified (principal); I10 Essential (primary) hypertension; E78.00 Pure hypercholesterolemia, unspecified; Z90.49 Acquired absence of other specified parts of digestive tract; Z79.899 Other long term (current) drug therapy; Z79.82 Long term (current) use of aspirin
CPT/HCPCS: 70450; 70450-26; 96374; 96375; 99283; 99284-25; J1885; J2765; J7030

== ENCOUNTER 2023-11-19 18:16 | Emergency (ER) | payer MEDICARE, MEDICAID ==
[2023-11-19] MEDS ORDERED: Sodium Chloride 0.9% 10 ML Syringe FLUSH PRN (19:24)
[2023-11-19 19:25] LABS: BASOPHILS ABSOLUTE AUTO 0.03 K/uL (0.00-0.20); BASOPHILS PERCENT AUTO 0.6 % (0.0-1.0); EOSINOPHILS ABSOLUTE AUTO 0.16 K/uL (0.00-0.45); EOSINOPHILS PERCENT AUTO 3.2 % (0.0-6.0); HEMATOCRIT 38.2 % (42.0-52.0); HEMOGLOBIN 12.5 g/dL (14.0-18.0); IMMATURE GRAN ABSOLUTE AUTO 0.01 K/uL (0.00-0.05); IMMATURE GRAN PERCENT AUTO 0.2 % (0.0-0.4); LYMPHOCYTES ABSOLUTE AUTO 1.15 K/uL (1.00-4.80); LYMPHOCYTES PERCENT AUTO 22.8 % (24.0-44.0); MEAN CORPUSCULAR HEMOGLOBIN 30.1 pg (28.0-32.0); MEAN CORPUSCULAR HGB CONC 32.7 g/dL (32.0-36.0); MEAN PLATELET VOLUME 9.8 fL (9.4-12.4); MONOCYTES ABSOLUTE AUTO 0.54 K/uL (0.00-0.80); MONOCYTES PERCENT AUTO 10.7 % (0.0-8.0); NEUTROPHILS ABSOLUTE AUTO 3.15 K/uL (1.80-7.70); NEUTROPHILS PERCENT AUTO 62.5 % (41.0-71.0); PLATELET COUNT,PLT 155 K/uL (150-400); RED BLOOD CELL COUNT 4.15 M/uL (4.52-5.90); WHITE BLOOD CELL COUNT,WBC 5.04 K/uL (3.9-11.3)
[2023-11-19 19:38] LABS: INR 1.05 (0.86-1.11)
[2023-11-19 19:49] LABS: A/G RATIO 1.2 (0.9-1.6); ALBUMIN 3.7 g/dL (3.4-5.0); BILIRUBIN TOTAL 0.4 mg/dL (0.2-1.0); CALCIUM 9.3 mg/dL (8.5-10.1); CREATININE 1.2 mg/dL (0.8-1.3); EST CRCL DRUG DOSING (CG) 41.8 mL/min; MAGNESIUM 1.8 mg/dL (1.8-2.4); POTASSIUM,K 4.7 mmol/L (3.5-5.1); PROTEIN TOTAL,TP 6.9 g/dL (6.4-8.2)
[2023-11-19] MEDS: Iopamidol 755 MG/ML 500 ML Multipack Bottle IVPUSH STA (21:04)
[2023-11-20 00:14] VITALS: BP 114/69; PULSE 64
== END 2023-11-19 23:11 | disposition home or self-care (01) ==
LOC: MW.ED 18:16
DX: R20.2 Paresthesia of skin (principal); R51.9 Headache, unspecified; I10 Essential (primary) hypertension; E11.9 Type 2 diabetes mellitus without complications; Z86.79 Personal history of other diseases of the circulatory system; E78.00 Pure hypercholesterolemia, unspecified; Z79.82 Long term (current) use of aspirin; Z79.84 Long term (current) use of oral hypoglycemic drugs; Z79.890 Hormone replacement therapy; Z79.899 Other long term (current) drug therapy; Z90.49 Acquired absence of other specified parts of digestive tract
CPT/HCPCS: 36415; 70450; 70496; 70498; 80053; 82947; 83735; 85025; 85610; 93005; 99284; Q9967; 93010; 99285

== ENCOUNTER 2024-04-24 22:50 | Emergency (ER) | payer MEDICARE, MEDICAID ==
[2024-04-24 23:25] VITALS: BP 143/55; PULSE 59
== END 2024-04-25 01:57 | disposition home or self-care (01) ==
LOC: MW.ED 22:50
DX: T69.9XXA Effect of reduced temperature, unspecified, initial encounter (principal); I10 Essential (primary) hypertension; E78.00 Pure hypercholesterolemia, unspecified; Z86.73 Personal history of transient ischemic attack (TIA), and cerebral infarction without residual deficits; Z79.84 Long term (current) use of oral hypoglycemic drugs; Z79.899 Other long term (current) drug therapy; Z95.1 Presence of aortocoronary bypass graft
CPT/HCPCS: 99283

== ENCOUNTER 2024-09-21 12:04 | Emergency (ER) | payer MEDICARE, MEDICAID ==
[2024-09-21] MEDS: Diphtheria,Pertussis(Acell),Tetanus Vaccine 0.5 ML Syringe IM ONE (13:15)
[2024-09-21 13:27] VITALS: BP 128/66; PULSE 68
== END 2024-09-21 13:26 | disposition home or self-care (01) ==
LOC: MW.ED 12:04
DX: S01.81XA Laceration without foreign body of other part of head, initial encounter (principal); E78.00 Pure hypercholesterolemia, unspecified; I10 Essential (primary) hypertension; Z86.73 Personal history of transient ischemic attack (TIA), and cerebral infarction without residual deficits; Z79.899 Other long term (current) drug therapy; Z79.82 Long term (current) use of aspirin; Z23 Encounter for immunization; Z79.890 Hormone replacement therapy; Z95.1 Presence of aortocoronary bypass graft; W22.8XXA Striking against or struck by other objects, initial encounter; Y93.89 Activity, other specified
CPT/HCPCS: 12011; 70450; 90715; 99283; A9270